=== PATIENT | female | born 1945 | race Caucasian/White ===

== ENCOUNTER 2020-08-30 01:01 | Inpatient (IN) | payer MEDICARE, SELFPAY ==
[2020-08-30] VITALS (9 sets, daily range): BP systolic 116–151; BP diastolic 52–93; PULSE 70–89; RESP 15–20; TEMP 36.3–36.9; O2SAT 95–100; BMI 30.9
--- NOTE | 2020-08-30 02:44 | ED.GIBLEED ---
HPI - GI Bleed General Chief complaint: Nausea/Vomiting/Diarrhea Stated complaint: Diarrhea Time Seen by Provider: 08/30/20 02:07 Source: patient Mode of arrival: ambulatory Limitations: no limitations History of Present Illness HPI Narrative: This is a 75-year-old female who presents with onset bloody stools, times for, that started approximately 7:00 p.m. this evening is not associated with any abdominal discomfort, nausea, or vomiting. In addition, patient states that she has this sensation of when she rolls onto the side and attempts to pass gas that she has passed blood at the same time which she has noted to be present on her Kotex pad. Patient states that she has had Patient states that she has had this once before approximately 3 months ago but was not evaluated for it at that time. She denies any use of blood thinners, or consumption of contaminated food, fevers, chills, urinary pain/ burning /frequency. Related Data Home Medications Medication Instructions Recorded Confirmed amlodipine 1 tab PO DAILY 08/30/20 08/30/20 atorvastatin 1 tab PO DAILY 08/30/20 08/30/20 hydrochlorothiazide 1 tab PO DAILY 08/30/20 08/30/20 latanoprost 1 drp OPHTHALMIC (EYE) DAILY 08/30/20 08/30/20 losartan 1 tab PO DAILY 08/30/20 08/30/20 metoprolol tartrate 1 tab PO BID 08/30/20 08/30/20 Allergies Allergy/AdvReac Type Severity Reaction Status Date / Time No Known Allergies Allergy Verified 08/30/20 02:44 Review of Systems Review of Systems: Pertinent positives and negatives as stated in HPI 10 point review systems is otherwise negative. [facility] Past Medical History Source: nursing notes reviewed Medical History Aplasia of uterus Glaucoma High cholesterol HTN (hypertension) S/p breast implant removal Tonsillectomy planned Vaginal fistula Social History Social History Alcohol intake: never Smoking Status: Never smoker Use of substances other than those prescribed or required for medical reasons: No Advance Directives: No Advance Directives Information Provided: Yes Physical Exam Vital Signs: Vital Signs: Last Vital Signs Temp 97.3 F 08/30/20 01:04 Pulse 89 08/30/20 06:00 Resp 15 08/30/20 06:00 BP 116/55 L 08/30/20 06:00 Pulse Ox 98 08/30/20 06:00 Body Mass Index 30.9 VITAL SIGNS: Reviewed. GENERAL: Well developed, well nourished, in no acute distress. HEAD: Normocephalic/atraumatic, EYES: PERRLA, EOMI intact without pain, no nystagmus/pallor/icterus noted EARS: Ext canals without abnormality, TMs non-bulging and non-erythematous NOSE: Nares patent bilateral OROPHARYNX: no oral lesions noted, posterior pharynx clear and non-erythematous without noted tonsillar enlargement/erythema/exudates NECK: Supple, no adenopathy LUNGS: Normal breath sounds. No adventitious sounds or accessory muscle use. SpO2<100> CARDIOVASCULAR: Regular rate and rhythm without noted murmurs, no JVD or lower extremity edema. ABDOMEN: Soft, non-tender, non-distended with bowel sounds. No rigidity. No guarding. No palpable masses or hernias noted KYLEE: Noninflamed hemorrhoid at the 6 o'clock position, significant irritation noted to the anus at the 12 o'clock position otherwise no tags or lesions noted, liquid stool noted in the rectal vault with good rectal tone and noted dark blood on gloved finger MUSCULOSKELETAL: No tenderness, deformities, or effusions noted on gross inspection. EXTREMITIES: No cyanosis, clubbing or edema. SKIN: Inspection of the skin reveals no rashes, ulcerations, jaundice, pallor, or petechiae. NEUROLOGIC: Alert and oriented x 4. Strength and sensation to light touch were grossly intact x 4. Course Course Course Narrative: This is a 75-year-old female with history and clinical presentation consistent with lower GI bleed diverticular versus ischemic versus hemorrhoidal in etiology. However, on noting the significant leukocytosis patient was further treated for sepsis with IV fluids (given at ideal body weight which was calculated to be 54.9 kilos ), blood cultures, lactic acid, and antibiotics. On review of all investigations there is a noted elevated bilirubin -1.2 which pushes patient into the category of organ dysfunction and lactic acid is noted to be within normal limits. COVID-19 testing is negative, and review of CT scan abdomen pelvis for GI bleed is significant for a noted hemangioma in the left liver lobe and wall thickening of the descending colon into the sigmoid without evidence of blush to suggest acute bleed. I discussed this case with inpatient hospitalist team and they are agreeable for admission. Reevaluation(s) Reevaluation #1: I discussed this case with Dr. Silva and he agrees with current plan and has no further recommendations at this time. Time: 05:45 MDM - GI Bleed Lab Data Result diagrams: 08/30/20 03:08 08/30/20 03:08 Labs: Lab Results 08/30/20 08/30/20 08/30/20 Range/Units 03:08 03:08 03:08 WBC 18.8 H (4.8-10.8) X10*3/uL RBC 4.89 (4.20-5.50) X10*6/uL Hgb 13.8 (12.0-16.0) g/dl Hct 42.3 (37-47) % MCV 86.5 (80-98) fL MCH 28.2 (27.0-33.0) pg MCHC 32.6 (31.0-35.0) g/dl RDW 12.5 (11.0-16.0) % Plt Count 282 (160-400) X10*3/uL MPV 10.5 (9.4-12.3) fL Immature Gran % (Auto) 0.4 (0.0-0.4) % Neut % (Auto) 85.3 H (45-73) % Lymph % (Auto) 6.8 L (20-40) % [place] % (Auto) 6.9 (2-11) % Eos % (Auto) 0.4 (0-4) % Baso % (Auto) 0.2 (0-2) % Lymph # (Auto) 1.3 (1.2-4.9) X10*3/uL [place] # (Auto) 1.3 H (0.1-1.2) X10*3/uL Eos # (Auto) 0.1 (0.0-0.4) X10*3/uL Baso # (Auto) 0.0 (0.0-0.2) X10*3/uL Abs Immat Gran (auto) 0.08 H (0.00-0.03) X10*3/uL Absolute Neuts (auto) 16.0 H (2.0-8.3) X10*3/uL Absolute Nucleated RBC 0.000 (0.0-0.012) X10*3/uL Nucleated RBC % (auto) 0.0 (0.0-0.2) /100WBC PT 12.1 (10.8-13.0) SEC INR 1.0 (0.9-1.1) Sodium 135 (135-145) mmol/L Potassium 3.3 (3.3-5.1) mmol/l Chloride 96 (96-108) mmol/L Carbon Dioxide 25 (22-29) mmol/L Anion Gap 17 (12-20) BUN 21 H (9-16) mg/dL Creatinine 1.05 (0.5-1.4) mg/dL Estim Creat Clear Calc 49.3 Estimated GFR 51 Random Glucose 155 H (60-115) mg/dL Lactic Acid (0.5-2.0) mmol/L Calcium 9.0 (8.4-10.2) mg/dL Total Bilirubin 1.2 H (0.0-1.0) mg/dL AST 11 (5-31) U/L ALT 15 (0-31) U/L Alkaline Phosphatase 78 (39-117) U/L Total Protein 7.2 (6.5-8.0) g/dL Albumin 4.2 (3.5-5.0) g/dL Urine Color Urine Appearance Urine pH (5.0-8.0) Ur Specific [place] (1.005-1.025) Urine Protein (NEG-TRACE) MG/DL Urine Glucose (UA) (NEG) MG/DL Urine Ketones (NEG) MG/DL Urine Blood (NEG) Urine Nitrite (NEG) Ur Leukocyte Esterase (NEG) Urine RBC (0) /HPF Urine WBC (0-4) /HPF Ur Squamous Epith Cells /LPF Urine Bacteria /LPF Hyaline Casts /LPF Granular Casts /LPF Urine Mucus /LPF Urine Yeast /HPF Stool Occult Blood (NEG) Coronavirus (PCR) (Negative) Influenza Type A (PCR) (Negative) Influenza Type B (PCR) (Negative) RSV RNA Qual (PCR) (Negative) Blood Type Antibody Screen 08/30/20 08/30/20 08/30/20 Range/Units 03:08 03:08 03:12 WBC (4.8-10.8) X10*3/uL RBC (4.20-5.50) X10*6/uL Hgb (12.0-16.0) g/dl Hct (37-47) % MCV (80-98) fL MCH (27.0-33.0) pg MCHC (31.0-35.0) g/dl RDW (11.0-16.0) % Plt Count (160-400) X10*3/uL MPV (9.4-12.3) fL Immature Gran % (Auto) (0.0-0.4) % Neut % (Auto) (45-73) % Lymph % (Auto) (20-40) % [place] % (Auto) (2-11) % Eos % (Auto) (0-4) % Baso % (Auto) (0-2) % Lymph # (Auto) (1.2-4.9) X10*3/uL [place] # (Auto) (0.1-1.2) X10*3/uL Eos # (Auto) (0.0-0.4) X10*3/uL Baso # (Auto) (0.0-0.2) X10*3/uL Abs Immat Gran (auto) (0.00-0.03) X10*3/uL Absolute Neuts (auto) (2.0-8.3) X10*3/uL Absolute Nucleated RBC (0.0-0.012) X10*3/uL Nucleated RBC % (auto) (0.0-0.2) /100WBC PT (10.8-13.0) SEC INR (0.9-1.1) Sodium (135-145) mmol/L Potassium (3.3-5.1) mmol/l Chloride (96-108) mmol/L Carbon Dioxide (22-29) mmol/L Anion Gap (12-20) BUN (9-16) mg/dL Creatinine (0.5-1.4) mg/dL Estim Creat Clear Calc Estimated GFR Random Glucose (60-115) mg/dL Lactic Acid (0.5-2.0) mmol/L Calcium (8.4-10.2) mg/dL Total Bilirubin (0.0-1.0) mg/dL AST (5-31) U/L ALT (0-31) U/L Alkaline Phosphatase (39-117) U/L Total Protein (6.5-8.0) g/dL Albumin (3.5-5.0) g/dL Urine Color YELLOW Urine Appearance CLEAR Urine pH 6.0 (5.0-8.0) Ur Specific [place] 1.020 (1.005-1.025) Urine Protein NEG (NEG-TRACE) MG/DL Urine Glucose (UA) NEG (NEG) MG/DL Urine Ketones NEG (NEG) MG/DL Urine Blood TRACE (NEG) Urine Nitrite NEG (NEG) Ur Leukocyte Esterase NEG (NEG) Urine RBC 0 (0) /HPF Urine WBC 0-2 (0-4) /HPF Ur Squamous Epith Cells 3+ /LPF Urine Bacteria 1+ /LPF Hyaline Casts 0-2 /LPF Granular Casts 0-2 /LPF Urine Mucus 1+ /LPF Urine Yeast 2+ /HPF Stool Occult Blood POS (NEG) Coronavirus (PCR) (Negative) Influenza Type A (PCR) (Negative) Influenza Type B (PCR) (Negative) RSV RNA Qual (PCR) (Negative) Blood Type A Positive Antibody Screen NEGATIVE 08/30/20 08/30/20 Range/Units 03:48 03:55 WBC (4.8-10.8) X10*3/uL RBC (4.20-5.50) X10*6/uL Hgb (12.0-16.0) g/dl Hct (37-47) % MCV (80-98) fL MCH (27.0-33.0) pg MCHC (31.0-35.0) g/dl RDW (11.0-16.0) % Plt Count (160-400) X10*3/uL MPV (9.4-12.3) fL Immature Gran % (Auto) (0.0-0.4) % Neut % (Auto) (45-73) % Lymph % (Auto) (20-40) % [place] % (Auto) (2-11) % Eos % (Auto) (0-4) % Baso % (Auto) (0-2) % Lymph # (Auto) (1.2-4.9) X10*3/uL [place] # (Auto) (0.1-1.2) X10*3/uL Eos # (Auto) (0.0-0.4) X10*3/uL Baso # (Auto) (0.0-0.2) X10*3/uL Abs Immat Gran (auto) (0.00-0.03) X10*3/uL Absolute Neuts (auto) (2.0-8.3) X10*3/uL Absolute Nucleated RBC (0.0-0.012) X10*3/uL Nucleated RBC % (auto) (0.0-0.2) /100WBC PT (10.8-13.0) SEC INR (0.9-1.1) Sodium (135-145) mmol/L Potassium (3.3-5.1) mmol/l Chloride (96-108) mmol/L Carbon Dioxide (22-29) mmol/L Anion Gap (12-20) BUN (9-16) mg/dL Creatinine (0.5-1.4) mg/dL Estim Creat Clear Calc Estimated GFR Random Glucose (60-115) mg/dL Lactic Acid 1.7 (0.5-2.0) mmol/L Calcium (8.4-10.2) mg/dL Total Bilirubin (0.0-1.0) mg/dL AST (5-31) U/L ALT (0-31) U/L Alkaline Phosphatase (39-117) U/L Total Protein (6.5-8.0) g/dL Albumin (3.5-5.0) g/dL Urine Color Urine Appearance Urine pH (5.0-8.0) Ur Specific [place] (1.005-1.025) Urine Protein (NEG-TRACE) MG/DL Urine Glucose (UA) (NEG) MG/DL Urine Ketones (NEG) MG/DL Urine Blood (NEG) Urine Nitrite (NEG) Ur Leukocyte Esterase (NEG) Urine RBC (0) /HPF Urine WBC (0-4) /HPF Ur Squamous Epith Cells /LPF Urine Bacteria /LPF Hyaline Casts /LPF Granular Casts /LPF Urine Mucus /LPF Urine Yeast /HPF Stool Occult Blood (NEG) Coronavirus (PCR) NEGATIVE (Negative) Influenza Type A (PCR) NEGATIVE (Negative) Influenza Type B (PCR) NEGATIVE (Negative) RSV RNA Qual (PCR) NEGATIVE (Negative) Blood Type Antibody Screen Discharge Plan Discharge Clinical Impression: Colitis Sepsis Qualifiers: Sepsis type: sepsis due to unspecified organism Sepsis acute organ dysfunction status: unspecified Qualified Code(s): A41.9 - Sepsis, unspecified organism Patient Disposition: Admitted As Inpatient
[2020-08-30 03:18] LABS: Basophils Percent Auto 0.2 % (0-2); Eosinophils Absolute Auto 0.1 X10*3/uL (0.0-0.4); Eosinophils Percent Auto 0.4 % (0-4); Hematocrit 42.3 % (37-47); Hemoglobin 13.8 g/dl (12.0-16.0); Imm Gran Abs Auto 0.08 X10*3/uL (0.00-0.03); Imm Gran Pct Auto 0.4 % (0.0-0.4); Lymphocytes Absolute Auto 1.3 X10*3/uL (1.2-4.9); Lymphocytes Percent Auto 6.8 % (20-40); MANUAL DIFF FLAG NO; Mean Corpuscular HGB Conc 32.6 g/dl (31.0-35.0); Mean Corpuscular Hemoglobin 28.2 pg (27.0-33.0); Mean Corpuscular Volume 86.5 fL (80-98); Mean Platelet Volume 10.5 fL (9.4-12.3); Monocytes Absolute Auto 1.3 X10*3/uL (0.1-1.2); Monocytes Percent Auto 6.9 % (2-11); Neutrophils Percent Auto 85.3 % (45-73); Platelet Count 282 X10*3/uL (160-400); Red Blood Count 4.89 X10*6/uL (4.20-5.50); Red Cell Distribution Width 12.5 % (11.0-16.0); White Blood Count 18.8 X10*3/uL (4.8-10.8)
[2020-08-30 03:19] LABS: Glucose Urine UA NEG (NEG); Leukocyte Esterase Urine NEG (NEG); Nitrite Urine NEG (NEG); Urine Blood TRACE (NEG); Urine Ketones NEG (NEG); Urine Protein NEG (NEG-TRACE)
[2020-08-30 03:21] LABS: OBS Int Ctl Valid YES; OBS1 POS (NEG)
[2020-08-30 03:21] LABS: Appearance Urine CLEAR; Color Urine YELLOW
[2020-08-30 03:23] LABS: Prothrombin Time 12.1 SEC (10.8-13.0)
--- NOTE | 2020-08-30 03:28 | CT_ITS ---
EXAMINATION: CT ABDOMEN AND PELVIS WITHOUT AND WITH CONTRAST CLINICAL INFORMATION: GI bleed COMPARISON: None TECHNIQUE: Multidetector volumetric imaging was performed of the abdomen and pelvis before and after the IV administration of 80 mL of Omnipaque 350 intravenous contrast. Two-minute delayed acquisition performed. Sagittal and coronal reformatted images were obtained on the technologist's workstation. This CT examination was performed using dose optimization techniques as appropriate, variously including the following: *Automated exposure control *Adjustment of mA and/or kV according to patient size (this includes techniques or standardized protocols for targeted exams where dose is matched to indication/reason for exam; i.e. extremities or head) *Use of iterative reconstruction technique DLP: 1769 mGy-cm FINDINGS: LUNG BASES: The visualized lung bases are unremarkable. LIVER, GALLBLADDER, AND BILIARY TREE: The liver is normal in size, shape, and attenuation. No biliary ductal dilatation. There is a 3.5 cm mass in the left lobe of the liver. This is initially hypoattenuating. There is heterogeneous enhancement on arterial phase with uniform enhancement on the delayed phase, consistent with a hemangioma.. The gallbladder is unremarkable with no evidence of radiopaque gallstones, gallbladder wall thickening, or obvious pericholecystic inflammatory changes. PANCREAS: Unremarkable SPLEEN: Unremarkable ADRENAL GLANDS: Unremarkable KIDNEYS AND URETERS: The kidneys are normal in size, shape, and attenuation. No hydronephrosis, hydroureter, or calculi seen. No perinephric stranding. Right midpole renal cyst. BLADDER: Unremarkable GASTROINTESTINAL TRACT: The stomach is unremarkable. Normal caliber small bowel. No obstruction. There is prominent wall thickening involving the descending and sigmoid colon. Adjacent mild inflammation. There is no definite intraluminal blush of contrast, although evaluation is limited in the descending colon due to the collapsed nature of the lumen. No pooling of contrast on the delayed phase. Normal appendix. ABDOMINAL WALL: No significant hernia is appreciated. LYMPH NODES: Normal VASCULAR: Normal caliber aorta with mild atherosclerotic calcification. PELVIC VISCERA: The uterus and adnexa are unremarkable. OSSEOUS STRUCTURES: No acute or suspicious osseous abnormality. CT/CT gi bleed abd pel wo/w con IMPRESSION: 1. Prominent wall thickening of the descending and sigmoid colon, consistent with colitis. Favor infectious or inflammatory etiology. 2. No evidence for active gastrointestinal bleed. That said, evaluation of the descending colon is limited due to the collapsed lumen.
[2020-08-30 03:34] LABS: WBC Urine 0-2 /HPF (0-4)
[2020-08-30 03:35] LABS: Bacteria Urine 1+ /LPF; Granular Casts Urine 0-2 /LPF; Hyaline Casts Urine 0-2 /LPF; Mucus Urine 1+ /LPF; RBC Urine 0 /HPF (0); Squamous Epithelial Cell Urine 3+ /LPF
[2020-08-30 03:41] LABS: Alanine Aminotransferase 15 U/L (0-31); Albumin Level 4.2 g/dL (3.5-5.0); Alkaline Phosphatase 78 U/L (39-117); Anion Gap 17 (12-20); Aspartate Amino Transferase 11 U/L (5-31); Bilirubin Total 1.2 mg/dL (0.0-1.0); Blood Urea Nitrogen 21 mg/dL (9-16); Carbon Dioxide 25 mmol/L (22-29); Chloride 96 mmol/L (96-108); Creatinine Clr Calc Pharmacy 49.3; Estimated Glomerular Filt Rate 51; Glucose Random 155 mg/dL (60-115); Potassium 3.3 mmol/l (3.3-5.1); Sodium 135 mmol/L (135-145); Total Protein 7.2 g/dL (6.5-8.0)
[2020-08-30] MEDS: SODIUM CHLORIDE 999 ML IV (04:14)
[2020-08-30] MEDS: iohexoL 350 MG/ML 100 ML INFUS..BTL 80 ML IV (04:19)
[2020-08-30 04:22] LABS: Lactic Acid 1.7 mmol/L (0.5-2.0)
[2020-08-30 04:41] LABS: Influenza A PCR NEGATIVE (Negative); Influenza B PCR NEGATIVE (Negative); Resp Syncy Virus RNA Qual PCR NEGATIVE (Negative); SARS COV2 PCR INHOUSE NEGATIVE (Negative)
[2020-08-30] MEDS: Piperacillin Sodium/Tazobactam 3.375 GM in 0.9 % Sodium Chloride 50 ML IV (05:25)
[2020-08-30] MEDS: LORazepam 2 MG/ML VIAL 0.5 MG IVPUSH (06:09)
--- NOTE | 2020-08-30 10:49 | P.HPHOSP_ITS ---
History of Present Illness Date of Service: 08/30/20 Chief Complaint: bleeding per rectum a 75 years ovaluld lady with PMH of hypertension, obesity and hyperlipidemia who presents to the hospital complaining of bright red blood per rectum for 1 day prior to presentation. The patient reported that she woke up at the night to go to the bathroom were she noticed after passing bowel movement significant amount of blood in the toilet. She continue to have blood after each bowel movement which happened already 3 times since last night. No clots reported. She denies any abdominal pain, fever, chills, dizziness or lightheadedness, shortness of breath or chest pain. She reports she had last colonoscopy 10 years ago which was within normal. She confirm having a history of internal hemorrhoids but she did not have problem with bleeding before. CT scan the emergency was concerning for possible colitis in the descending colon. Admitted for further evaluation and treatment in the hospital. Review of Systems Review of Systems: No fever, chills or weakness No chest pain, palpitation No shortness of breath or coughing No abdominal pain, nausea or vomiting The but reported bleeding per rectum No urinary symptoms No any rash or wounds PMFSH Medical History Aplasia of uterus Glaucoma High cholesterol HTN (hypertension) S/p breast implant removal Tonsillectomy planned Vaginal fistula Social History Alcohol intake: never Smoking Status: Never smoker Use of substances other than those prescribed or required for medical reasons: No Advance Directives: No Advance Directives Information Provided: Yes Meds Allergies Allergy/AdvReac Type Severity Reaction Status Date / Time No Known Allergies Allergy Verified 08/30/20 02:44 Home Medications Medication Instructions Recorded Confirmed Type amlodipine 1 tab PO DAILY 08/30/20 08/30/20 History atorvastatin 1 tab PO DAILY 08/30/20 08/30/20 History hydrochlorothiazide 1 tab PO DAILY 08/30/20 08/30/20 History latanoprost 1 drp OPHTHALMIC (EYE) DAILY 08/30/20 08/30/20 History losartan 1 tab PO DAILY 08/30/20 08/30/20 History metoprolol tartrate 1 tab PO BID 08/30/20 08/30/20 History Physical Exam Vital Signs and Narrative: Vital Signs: Last Vital Signs Temp 97.3 F 08/30/20 01:04 Pulse 89 08/30/20 06:00 Resp 15 08/30/20 06:00 BP 116/55 L 08/30/20 06:00 Pulse Ox 98 08/30/20 06:00 Body Mass Index 30.9 Constitutional : Alert, oriented, not in distress Neck : Normal inspection, Supple Cardiovascular : RRR, S1 S2, no lower extremity edema Respiratory : Good bilateral air entry, no crackles, wheezes or rhonchi Gastrointestinal: soft, lax, Normal bowel sounds, no tenderness noted on exam Skin : Warm/Dry, No rash Neurological : Alert & oriented x3, No focal deficit Results Labs CBC and Chem 7: 08/30/20 03:08 08/30/20 03:08 Labs: Laboratory Results - last 24 hr 08/30/20 08/30/20 08/30/20 03:08 03:08 03:08 MCV 86.5 MCH 28.2 MCHC 32.6 RDW 12.5 Plt Count 282 MPV 10.5 Immature Gran % (Auto) 0.4 Neut % (Auto) 85.3 H Lymph % (Auto) 6.8 L [place] % (Auto) 6.9 Eos % (Auto) 0.4 Baso % (Auto) 0.2 Lymph # (Auto) 1.3 [place] # (Auto) 1.3 H Eos # (Auto) 0.1 Baso # (Auto) 0.0 Abs Immat Gran (auto) 0.08 H Absolute Neuts (auto) 16.0 H Absolute Nucleated RBC 0.000 Nucleated RBC % (auto) 0.0 PT 12.1 INR 1.0 Anion Gap 17 Estim Creat Clear Calc 49.3 Estimated GFR 51 Random Glucose 155 H Lactic Acid Calcium 9.0 Total Bilirubin 1.2 H AST 11 ALT 15 Alkaline Phosphatase 78 Total Protein 7.2 Albumin 4.2 Urine Color Urine Appearance Urine pH Ur Specific [place] Urine Protein Urine Glucose (UA) Urine Ketones Urine Blood Urine Nitrite Ur Leukocyte Esterase Urine RBC Urine WBC Ur Squamous Epith Cells Urine Bacteria Hyaline Casts Granular Casts Urine Mucus Urine Yeast Stool Occult Blood Coronavirus (PCR) Influenza Type A (PCR) Influenza Type B (PCR) RSV RNA Qual (PCR) Blood Type Antibody Screen 08/30/20 08/30/20 08/30/20 03:08 03:08 03:12 MCV MCH MCHC RDW Plt Count MPV Immature Gran % (Auto) Neut % (Auto) Lymph % (Auto) [place] % (Auto) Eos % (Auto) Baso % (Auto) Lymph # (Auto) [place] # (Auto) Eos # (Auto) Baso # (Auto) Abs Immat Gran (auto) Absolute Neuts (auto) Absolute Nucleated RBC Nucleated RBC % (auto) PT INR Anion Gap Estim Creat Clear Calc Estimated GFR Random Glucose Lactic Acid Calcium Total Bilirubin AST ALT Alkaline Phosphatase Total Protein Albumin Urine Color YELLOW Urine Appearance CLEAR Urine pH 6.0 Ur Specific [place] 1.020 Urine Protein NEG Urine Glucose (UA) NEG Urine Ketones NEG Urine Blood TRACE Urine Nitrite NEG Ur Leukocyte Esterase NEG Urine RBC 0 Urine WBC 0-2 Ur Squamous Epith Cells 3+ Urine Bacteria 1+ Hyaline Casts 0-2 Granular Casts 0-2 Urine Mucus 1+ Urine Yeast 2+ Stool Occult Blood POS Coronavirus (PCR) Influenza Type A (PCR) Influenza Type B (PCR) RSV RNA Qual (PCR) Blood Type A Positive Antibody Screen NEGATIVE 08/30/20 08/30/20 03:48 03:55 MCV MCH MCHC RDW Plt Count MPV Immature Gran % (Auto) Neut % (Auto) Lymph % (Auto) [place] % (Auto) Eos % (Auto) Baso % (Auto) Lymph # (Auto) [place] # (Auto) Eos # (Auto) Baso # (Auto) Abs Immat Gran (auto) Absolute Neuts (auto) Absolute Nucleated RBC Nucleated RBC % (auto) PT INR Anion Gap Estim Creat Clear Calc Estimated GFR Random Glucose Lactic Acid 1.7 Calcium Total Bilirubin AST ALT Alkaline Phosphatase Total Protein Albumin Urine Color Urine Appearance Urine pH Ur Specific [place] Urine Protein Urine Glucose (UA) Urine Ketones Urine Blood Urine Nitrite Ur Leukocyte Esterase Urine RBC Urine WBC Ur Squamous Epith Cells Urine Bacteria Hyaline Casts Granular Casts Urine Mucus Urine Yeast Stool Occult Blood Coronavirus (PCR) NEGATIVE Influenza Type A (PCR) NEGATIVE Influenza Type B (PCR) NEGATIVE RSV RNA Qual (PCR) NEGATIVE Blood Type Antibody Screen Imaging Radiologist's Impressions: Impressions Abdomen/Pelvis CT 08/30/20 03:28 IMPRESSION: 1. Prominent wall thickening of the descending and sigmoid colon, consistent with colitis. Favor infectious or inflammatory etiology. 2. No evidence for active gastrointestinal bleed. That said, evaluation of the descending colon is limited due to the collapsed lumen. Assessment and Plan (1) Lower GI bleed: Status: Acute (2) Colitis: Status: Acute a 75 years oval[place] lady with PMH of hypertension, obesity and hyperlipidemia who presents to the hospital complaining of bright red blood per rectum for 1 day prior to presentation. Lower GI bleed Be secondary to internal hemorrhoids, ischemic colitis, diverticular bleed,infectious colitis hemoglobin has been stable CT scan consistent with colitis with no evidence for acute bleed Monitor H and H For GI to evaluate Colitis Could be infection was, inflammatory or ischemic Blood cultures pending Start ceftriaxone and Flagyl for the time being gentle hydration Clear liquids Hypertension Blood pressure running the around normal With active bleeding will hold HCT, amlodipine and losartan Start metoprolol and a lower dose To add blood pressure medications as needed DVT PPX SCDs
[2020-08-30] MEDS: metroNIDAZOLE/NS 500 MG/100 ML PIGGYBACK 100 MG IV ×2 (12:00→20:39)
--- NOTE | 2020-08-30 13:39 | CONS_ITS ---
DATE OF SERVICE: 08/30/2020 REFERRING PHYSICIAN: Yessenia Ayers REASON FOR CONSULTATION: Colitis and rectal bleeding. HISTORY OF PRESENT ILLNESS: The patient is a pleasant 75-year-old woman, who presented to the emergency room earlier today with complaints of rectal bleeding. She states she was well until the day before admission when she went to bed and shortly afterwards woke up with the urge to move her bowels. Initially, she had diarrhea and then she noticed blood on the toilet paper and in the bowl. This happened several times at home and she presented to the emergency room. She has had no further bleeding since admission. She was evaluated in the emergency department and laboratory studies showed a normal hematocrit. She did have a white blood cell count elevation to 18.8. She subsequently was evaluated with CT scanning, which is reviewed. This is interpreted as showing wall thickening of the descending and sigmoid colon consistent with colitis. She is being admitted to the hospital. The patient denies any prior history of colitis. She believes she had a colonoscopy about 13 years ago in [place], which was remarkable for hemorrhoids. She has no recent travel history or unusual ingestions or ill contacts. There is no family history of inflammatory bowel disease. PAST MEDICAL HISTORY: 1. Hypertension. 2. Elevated cholesterol. 3. Glaucoma. 4. Vaginal fistula , requiring surgery. 5. Breast implant placement and removal. CURRENT MEDICATIONS: Her current medication list is reviewed in the chart. ALLERGIES: THERE ARE NONE REPORTED. FAMILY HISTORY: As above. SOCIAL HISTORY: There is no current tobacco, alcohol, or substance abuse. REVIEW OF SYSTEMS: SKIN: No pruritus. HEENT: Negative. CARDIOPULMONARY: No shortness of breath or chest pain. GASTROINTESTINAL: As above. GENITOURINARY: Negative. NEUROPSYCHIATRIC: Negative. PHYSICAL EXAMINATION: GENERAL: Shows a pleasant female, lying comfortably in bed. VITAL SIGNS: Stable. SKIN: Anicteric. HEENT: Shows no scleral icterus. NECK: Without lymphadenopathy or thyromegaly. LUNGS: Clear. HEART: Regular rate and rhythm. S1, S2. No murmur. ABDOMEN: Soft without focal masses, tenderness, guarding, or rebound. Bowel sounds are present. No organomegaly is noted. EXTREMITIES: Without edema. LABORATORY DATA: Laboratory data and CT scanning are reviewed. IMPRESSION: Colitis. This likely represents an infectious colitis with ischemic being less likely. I doubt this represents a primary presentation of inflammatory bowel disease. She has been started on antibiotics for the time being, and I agree with continuing these. I would recommend obtaining stool specimens to rule out any treatable infectious etiology. If her symptoms persist, limited sigmoidoscopy could be performed for further evaluation. I did discuss with her the need to have a full colonoscopy at some point once she has recovered from this acute episode. Thanks for asking me to see her. I will follow her in the hospital with you. MD KIM Panda/[place] / [phone]
[2020-08-30] MEDS: cefTRIAXone sodium 1 GM in 0.9 % Sodium Chloride 50 ML IV (14:04)
[2020-08-30] MEDS: Latanoprost 0.005 % Ophth Sol 2.5 ML DROPS 1 DROP EYE-BOTH (20:39)
[2020-08-30] MEDS: 0.9 % Sodium Chloride Flush 3 ML SYRINGE IVFLUSH (20:39)
[2020-08-30] MEDS: 0.9 % Sodium Chloride 1,000 ML 75 ML IVCONT (20:39)
--- NOTE | 2020-08-30 21:12 | PM.EVENT ---
Event Note Date of Service: 08/30/20 Event Note: Metoprolol dose updated to 100 mg BID which is the dose patient is taking at home per patient's list.
[2020-08-30 22:04] LABS: Anion Gap 12 (12-20); Blood Urea Nitrogen 10 mg/dL (9-16); Calcium 8.3 mg/dL (8.4-10.2); Carbon Dioxide 28 mmol/L (22-29); Chloride 104 mmol/L (96-108); Creatinine Clr Calc Pharmacy 63.9; Estimated Glomerular Filt Rate > 60; Glucose Random 94 mg/dL (60-115); Magnesium 1.6 mg/dL (1.6-2.6); Potassium 3.2 mmol/l (3.3-5.1); Sodium 141 mmol/L (135-145)
[2020-08-30] MEDS: Metoprolol Tartrate 100 MG TABLET PO (22:18)
[2020-08-31] VITALS (7 sets, daily range): BP systolic 112–146; BP diastolic 57–70; PULSE 61–90; RESP 16–20; TEMP 36.4–36.9; O2SAT 94–95; BMI 30.9
[2020-08-31] MEDS: metroNIDAZOLE/NS 500 MG/100 ML PIGGYBACK 100 MG IV ×3 (02:55→18:17)
[2020-08-31 06:29] LABS: Hematocrit 39.4 % (37-47); Hemoglobin 12.7 g/dl (12.0-16.0); Mean Corpuscular HGB Conc 32.2 g/dl (31.0-35.0); Mean Corpuscular Hemoglobin 28.5 pg (27.0-33.0); Mean Corpuscular Volume 88.3 fL (80-98); Mean Platelet Volume 11.2 fL (9.4-12.3); Platelet Count 230 X10*3/uL (160-400); Red Blood Count 4.46 X10*6/uL (4.20-5.50); Red Cell Distribution Width 12.9 % (11.0-16.0); White Blood Count 7.5 X10*3/uL (4.8-10.8)
[2020-08-31 07:03] LABS: Anion Gap 13 (12-20); Blood Urea Nitrogen 10 mg/dL (9-16); Calcium 8.4 mg/dL (8.4-10.2); Carbon Dioxide 28 mmol/L (22-29); Chloride 106 mmol/L (96-108); Creatinine Clr Calc Pharmacy 62.4; Estimated Glomerular Filt Rate > 60; Glucose Random 103 mg/dL (60-115); Potassium 3.5 mmol/l (3.3-5.1); Sodium 143 mmol/L (135-145)
[2020-08-31] MEDS: 0.9 % Sodium Chloride Flush 3 ML SYRINGE IVFLUSH (07:33)
--- NOTE | 2020-08-31 08:45 | MHC.CM.PN ---
CM met with Patient. Patient lives alone in a house and uses a cane for long distance mobility only. Patient's goal is to return home and CM has initiated and will follow for dc planning.IMM addressed with Patient and the original has been given to her and a copy has been placed on the chart.Patient's PCP is Dr. Merlin Dewitt.Patient's Daughter/Lacy is her HCP.
[2020-08-31] MEDS: 0.9 % Sodium Chloride 1,000 ML 75 ML IVCONT ×2 (09:31→23:36)
[2020-08-31] MEDS: cefTRIAXone sodium 1 GM in 0.9 % Sodium Chloride 50 ML IV (09:32)
[2020-08-31] MEDS: Atorvastatin Calcium 40 MG TABLET PO (10:13)
[2020-08-31] MEDS: Metoprolol Tartrate 100 MG TABLET PO ×2 (10:13→20:24)
--- NOTE | 2020-08-31 15:21 | HO.PM.IMPN ---
Subjective Subjective Date of Service: 08/31/20 Interval History: patient seen and examined at bedside patient was reporting diarrhea and abdominal pain Review of Systems No fever, chills or weakness No chest pain, palpitation No shortness of breath or coughing No abdominal pain, nausea or vomiting The but reported bleeding per rectum No urinary symptoms No any rash or wounds Constitutional Constitutional: Reports weakness Cardiovascular Cardiovascular: Denies dyspnea Respiratory Respiratory: Denies dyspnea Gastrointestinal Gastrointestinal: Reports abdominal pain, Reports diarrhea and Denies vomiting Neurologic Neurologic: Reports weakness Physical Exam Vital Signs: Vital Signs: Last Vital Signs Temp 97.9 F 08/31/20 12:00 Pulse 61 08/31/20 12:00 Resp 18 08/31/20 12:00 BP 121/60 08/31/20 12:00 Pulse Ox 94 08/31/20 12:00 Body Mass Index 30.9 Objective Data Current Medications Generic Name Dose Route Start Last Admin Trade Name Freq PRN Reason Stop Dose Admin Acetaminophen 650 mg 08/30/20 17:34 Acetaminophen 325 Mg Tablet PO Q6H PRN Pain, Mild (Pain Scale 1-3) Atorvastatin Calcium 40 mg 08/31/20 09:00 08/31/20 10:13 Atorvastatin Calcium 40 Mg Tablet PO 40 mg DAILY JANETH Administration Ceftriaxone Sodium 1 gm/ 50 mls @ 100 mls/hr 08/30/20 11:00 08/31/20 10:14 Sodium Chloride IV Infused DAILY JANETH Infusion Metronidazole 500 mg in 100 mls @ 100 mls/hr 08/30/20 10:45 08/31/20 12:12 Flagyl IV Infused Q8H JANETH Infusion Sodium Chloride 1,000 mls @ 75 mls/hr 08/30/20 17:34 08/31/20 09:31 Ns IVCONT 75 mls/hr .[id number] JANETH Administration Latanoprost 1 drop 08/31/20 09:00 08/30/20 20:39 Latanoprost 0.005 % Ophth Nahomy 2.5 Ml Drops EYE-BOTH 1 drop DAILY JANETH Administration Metoprolol Tartrate 100 mg 08/31/20 09:00 08/31/20 10:13 Metoprolol Tartrate 100 Mg Tablet PO 100 mg BID JANETH Administration Protocol Ondansetron HCl 4 mg 08/30/20 17:34 Ondansetron Hcl 4 Mg/2 Ml Vial IVPUSH Q8H PRN Nausea and Vomiting Sodium Chloride 3 ml 08/30/20 17:34 08/31/20 07:33 0.9 % Sodium Chloride Flush 3 Ml Syringe IVFLUSH 3 ml QSHIFT JANETH Administration Labs CBC & Chem 7: 08/31/20 05:37 08/31/20 05:37 Microbiology Microbiology Results: Microbiology 08/30/20 03:48 Blood - Venous Blood Culture - Preliminary 08/30/20 03:48 Blood - Venous Blood Culture - Preliminary No growth after 24 hours. Assessment and Plan (1) Lower GI bleed: Status: Acute (2) Colitis: Status: Acute Assessment and Plan: 75 years old lady with PMH of hypertension, obesity and hyperlipidemia who presents to the hospital complaining of bright red blood per rectum for 1 day prior to presentation. Lower GI bleed likely secondary to colitis infectious versus inflammatory continue IV antibiotic 1 set of blood culture preliminary growing Gram-positive cocci received 1 unit of vancomycin follow-up cultures seen by GI recommended medical management Hypertension blood pressure is stable hold antihypertensive given GI bleed and soft blood pressure DVT PPX SCDs
--- NOTE | 2020-08-31 16:03 | MHC.CM.PN ---
Per MD, Patient will be medically cleared for dc to home today, no services.IMM addressed this morning.
--- NOTE | 2020-08-31 16:39 | PM.GIPN ---
Subjective Subjective Date of Service: 08/31/20 Interval History: abdominal pain improved no further bleeding Physical Exam Vital Signs: Vital Signs: Last Vital Signs Temp 98.5 F 08/31/20 15:46 Pulse 90 08/31/20 15:46 Resp 20 08/31/20 15:46 BP 112/64 08/31/20 15:46 Pulse Ox 95 08/31/20 15:46 Body Mass Index 30.9 Const: General: cooperative, no acute distress and anxious GI: Palpation (GI): Soft to palpation and No hepatosplenomegaly present Extrem: General: Yes no clubbing, cyanosis or edema Objective Data Labs CBC & Chem 7: 08/31/20 05:37 08/31/20 05:37 Labs: Laboratory Results - last 24 hr 08/30/20 08/31/20 08/31/20 21:29 05:37 05:37 WBC 7.5 RBC 4.46 Hgb 12.7 Hct 39.4 MCV 88.3 MCH 28.5 MCHC 32.2 RDW 12.9 Plt Count 230 MPV 11.2 Absolute Nucleated RBC 0.000 Nucleated RBC % (auto) 0.0 Sodium 141 143 Potassium 3.2 L 3.5 Chloride 104 106 Carbon Dioxide 28 28 Anion Gap 12 13 BUN 10 D 10 Creatinine 0.81 0.83 Estim Creat Clear Calc 63.9 62.4 Estimated GFR > 60 > 60 Random Glucose 94 D 103 Calcium 8.3 L D 8.4 Magnesium 1.6 Microbiology Microbiology Results: Microbiology 08/30/20 03:48 Blood - Venous Blood Culture - Preliminary 08/30/20 03:48 Blood - Venous Blood Culture - Preliminary No growth after 24 hours. Progress Note: A&P Assessment and plan (1) Colitis: Status: Acute Assessment and Plan: clinically improved await final stool and micro results sigmoidoscopy unlikely to change therapy at this point Fall Risk Details Current Medications: Current Medications Generic Name Dose Route Start Last Admin Trade Name Freq PRN Reason Stop Dose Admin Acetaminophen 650 mg 08/30/20 17:34 Acetaminophen 325 Mg Tablet PO Q6H PRN Pain, Mild (Pain Scale 1-3) Atorvastatin Calcium 40 mg 08/31/20 09:00 08/31/20 10:13 Atorvastatin Calcium 40 Mg Tablet PO 40 mg DAILY JANETH Administration Ceftriaxone Sodium 1 gm/ 50 mls @ 100 mls/hr 08/30/20 11:00 08/31/20 10:14 Sodium Chloride IV Infused DAILY JANETH Infusion Metronidazole 500 mg in 100 mls @ 100 mls/hr 08/30/20 10:45 08/31/20 12:12 Flagyl IV Infused Q8H JANETH Infusion Sodium Chloride 1,000 mls @ 75 mls/hr 08/30/20 17:34 08/31/20 09:31 Ns IVCONT 75 mls/hr .[id number] JANETH Administration Latanoprost 1 drop 08/31/20 09:00 08/30/20 20:39 Latanoprost 0.005 % Ophth Nahomy 2.5 Ml Drops EYE-BOTH 1 drop DAILY JANETH Administration Metoprolol Tartrate 100 mg 08/31/20 09:00 08/31/20 10:13 Metoprolol Tartrate 100 Mg Tablet PO 100 mg BID JANETH Administration Protocol Ondansetron HCl 4 mg 08/30/20 17:34 Ondansetron Hcl 4 Mg/2 Ml Vial IVPUSH Q8H PRN Nausea and Vomiting Sodium Chloride 3 ml 08/30/20 17:34 08/31/20 16:24 0.9 % Sodium Chloride Flush 3 Ml Syringe IVFLUSH Not Given QSHIFT JANETH Time Spent With Patient Time: Total time spent is greater than 50% in coordination of care (as documented) at patient's floor/unit and/or counseling patient: Time with patient: less than 15 minutes
[2020-08-31] MEDS: Latanoprost 0.005 % Ophth Sol 2.5 ML DROPS 1 DROP EYE-BOTH (20:26)
[2020-08-31 20:54] LABS: Leukocytes Stool Qualitative NEGATIVE (NEGATIVE)
[2020-09-01] VITALS (9 sets, daily range): BP systolic 107–145; BP diastolic 51–68; PULSE 56–82; RESP 18–20; TEMP 35.7–37.1; O2SAT 94–98
[2020-09-01] MEDS: metroNIDAZOLE/NS 500 MG/100 ML PIGGYBACK 100 MG IV ×3 (02:38→18:11)
[2020-09-01 09:31] LABS: MANUAL DIFF FLAG NO
[2020-09-01] MEDS: Atorvastatin Calcium 40 MG TABLET PO (09:31)
[2020-09-01] MEDS: Metoprolol Tartrate 100 MG TABLET PO ×2 (09:31→20:54)
[2020-09-01] MEDS: cefTRIAXone sodium 1 GM in 0.9 % Sodium Chloride 50 ML IV (09:32)
[2020-09-01 09:36] LABS: Basophils Percent Auto 0.1 % (0-2); Eosinophils Absolute Auto 0.5 X10*3/uL (0.0-0.4); Eosinophils Percent Auto 6.8 % (0-4); Hematocrit 40.3 % (37-47); Hemoglobin 12.5 g/dl (12.0-16.0); Imm Gran Abs Auto 0.04 X10*3/uL (0.00-0.03); Imm Gran Pct Auto 0.6 % (0.0-0.4); Lymphocytes Absolute Auto 1.3 X10*3/uL (1.2-4.9); Lymphocytes Percent Auto 19.1 % (20-40); Mean Corpuscular Hemoglobin 28.1 pg (27.0-33.0); Mean Corpuscular Volume 90.6 fL (80-98); Mean Platelet Volume 10.8 fL (9.4-12.3); Monocytes Absolute Auto 0.6 X10*3/uL (0.1-1.2); Monocytes Percent Auto 7.8 % (2-11); Neutrophils Absolute Auto 4.6 X10*3/uL (2.0-8.3); Neutrophils Percent Auto 65.6 % (45-73); Platelet Count 234 X10*3/uL (160-400); Red Blood Count 4.45 X10*6/uL (4.20-5.50); Red Cell Distribution Width 13.1 % (11.0-16.0)
[2020-09-01 10:05] LABS: Anion Gap 14 (12-20); Blood Urea Nitrogen 9 mg/dL (9-16); Carbon Dioxide 25 mmol/L (22-29); Chloride 107 mmol/L (96-108); Creatinine Clr Calc Pharmacy 54.5; Estimated Glomerular Filt Rate 58; Glucose Random 160 mg/dL (60-115); Potassium 3.6 mmol/l (3.3-5.1); Sodium 142 mmol/L (135-145)
[2020-09-01 10:12] LABS: Calcium 8.5 mg/dL (8.4-10.2)
[2020-09-01] MEDS: 0.9 % Sodium Chloride 1,000 ML 75 ML IVCONT (13:14)
--- NOTE | 2020-09-01 13:55 | PM.GIPN ---
Subjective Subjective Date of Service: 09/01/20 Interval History: no bleeding Physical Exam Vital Signs: Vital Signs: Last Vital Signs Temp 96.3 F L 09/01/20 11:26 Pulse 70 09/01/20 11:26 Resp 20 09/01/20 11:26 BP 139/66 09/01/20 11:26 Pulse Ox 95 09/01/20 11:26 Body Mass Index 30.9 Const: General: cooperative, alert and awake GI: Inspection: Yes normal to inspection Palpation (GI): Soft to palpation and No hepatosplenomegaly present Extrem: General: Yes no clubbing, cyanosis or edema Objective Data Labs CBC & Chem 7: 09/01/20 09:01 09/01/20 09:01 Progress Note: A&P Assessment and plan (1) Colitis: Status: Acute Assessment and Plan: stool wbc neg hct stable advance diet, can d/c when tolerating diet will arrange out patient colonoscopy in about 8 weeks after recovered from acute episode. Time Spent With Patient Time: Total time spent is greater than 50% in coordination of care (as documented) at patient's floor/unit and/or counseling patient: 15 min Time with patient: 15 - 24 minutes
--- NOTE | 2020-09-01 15:56 | HO.PM.IMPN ---
Subjective Subjective Date of Service: 09/01/20 Interval History: patient seen and examined at bedside patient was reporting diarrhea but no blood in stool Constitutional Constitutional: Reports weakness Cardiovascular Cardiovascular: Denies dyspnea Respiratory Respiratory: Denies dyspnea Gastrointestinal Gastrointestinal: Reports abdominal pain, Reports diarrhea and Denies vomiting Neurologic Neurologic: Reports weakness Physical Exam Vital Signs: Vital Signs: Last Vital Signs Temp 96.3 F L 09/01/20 11:26 Pulse 70 09/01/20 11:26 Resp 20 09/01/20 11:26 BP 139/66 09/01/20 11:26 Pulse Ox 95 09/01/20 11:26 Body Mass Index 30.9 Const: General: cooperative, no acute distress, alert, awake and anxious GI: Inspection: Yes normal to inspection Palpation (GI): Soft to palpation and No hepatosplenomegaly present Extrem: General: Yes no clubbing, cyanosis or edema Objective Data Current Medications Generic Name Dose Route Start Last Admin Trade Name Freq PRN Reason Stop Dose Admin Acetaminophen 650 mg 08/30/20 17:34 Acetaminophen 325 Mg Tablet PO Q6H PRN Pain, Mild (Pain Scale 1-3) Atorvastatin Calcium 40 mg 08/31/20 09:00 09/01/20 09:31 Atorvastatin Calcium 40 Mg Tablet PO 40 mg DAILY JANETH Administration Ceftriaxone Sodium 1 gm/ 50 mls @ 100 mls/hr 08/30/20 11:00 09/01/20 10:22 Sodium Chloride IV Infused DAILY JANETH Infusion Metronidazole 500 mg in 100 mls @ 100 mls/hr 08/30/20 10:45 09/01/20 12:30 Flagyl IV Infused Q8H JANETH Infusion Sodium Chloride 1,000 mls @ 75 mls/hr 08/30/20 17:34 09/01/20 13:14 Ns IVCONT 75 mls/hr .[id number] JANETH Administration Latanoprost 1 drop 08/31/20 09:00 09/01/20 09:33 Latanoprost 0.005 % Ophth Nahomy 2.5 Ml Drops EYE-BOTH Not Given DAILY JANETH Metoprolol Tartrate 100 mg 08/31/20 09:00 09/01/20 09:31 Metoprolol Tartrate 100 Mg Tablet PO 100 mg BID JANETH Administration Protocol Ondansetron HCl 4 mg 08/30/20 17:34 Ondansetron Hcl 4 Mg/2 Ml Vial IVPUSH Q8H PRN Nausea and Vomiting Sodium Chloride 3 ml 08/30/20 17:34 09/01/20 09:33 0.9 % Sodium Chloride Flush 3 Ml Syringe IVFLUSH Not Given QSHIFT JANETH Labs CBC & Chem 7: 09/01/20 09:01 09/01/20 09:01 Microbiology Microbiology Results: Microbiology 08/30/20 03:48 Blood - Venous Blood Culture - Preliminary Coagulase-neg Staphyloccocus 08/30/20 03:48 Blood - Venous Blood Culture - Preliminary No growth after 48 hours. Assessment and Plan (1) Lower GI bleed: Status: Acute (2) Colitis: Status: Acute Assessment and Plan: 75 years old lady with PMH of hypertension, obesity and hyperlipidemia who presents to the hospital complaining of bright red blood per rectum for 1 day prior to presentation. Lower GI bleed likely secondary to colitis infectious versus inflammatory continue IV antibiotic 1 set of blood culture growing staph epidermidis likely contamination follow-up cultures seen by GI recommended medical management advanced diet as tolerated Hypertension blood pressure is stable hold antihypertensive given GI bleed and soft blood pressure DVT PPX SCDs given GI bleed
[2020-09-01] MEDS: Latanoprost 0.005 % Ophth Sol 2.5 ML DROPS 1 DROP EYE-BOTH (20:53)
[2020-09-02] MEDS: metroNIDAZOLE/NS 500 MG/100 ML PIGGYBACK 100 MG IV ×2 (02:43→10:45)
[2020-09-02] MEDS: 0.9 % Sodium Chloride 1,000 ML 75 ML IVCONT (04:20)
[2020-09-02 04:40] VITALS: BP 134/65; PULSE 66; RESP 18; TEMP 37.1; O2SAT 96
[2020-09-02 08:00] VITALS: BP 137/75; PULSE 64; RESP 18; TEMP 36.1; O2SAT 94
[2020-09-02] MEDS: cefTRIAXone sodium 1 GM in 0.9 % Sodium Chloride 50 ML IV (10:02)
[2020-09-02] MEDS: Atorvastatin Calcium 40 MG TABLET PO (10:03)
[2020-09-02] MEDS: Metoprolol Tartrate 100 MG TABLET PO (10:03)
--- NOTE | 2020-09-02 11:30 | MHC.CM.PN ---
Patient has been medically cleared for dc to home today, no services. Last IMM addressed on 08/31/2020.
--- NOTE | 2020-09-02 11:32 | PM.DS ---
DS: Providers Provider Date of admission: 08/30/20 10:43 Primary care physician: Merlin Dewitt MD Consults: 08/30/20 17:34 Consult to Gastroenterology Routine Consulting Provider: Joseph Silva Reason for consultation: Lower GI bleed, suspected colitis on CT scan DS: Diagnosis Discharge Diagnosis (1) Lower GI bleed: Status: Acute (2) Colitis: Status: Acute DS: Medications Discharge Medications Home Medications: Home Medications Medication Instructions Recorded Confirmed amlodipine 1 tab PO DAILY 08/30/20 08/30/20 atorvastatin 1 tab PO DAILY 08/30/20 08/30/20 hydrochlorothiazide 1 tab PO DAILY 08/30/20 08/30/20 latanoprost 1 drp OPHTHALMIC (EYE) DAILY 08/30/20 08/30/20 losartan 1 tab PO DAILY 08/30/20 08/30/20 metoprolol tartrate 1 tab PO BID 08/30/20 08/30/20 cholecalciferol (vitamin D3) 50 mcg PO DAILY 09/01/20 09/01/20 [Vitamin D3] DS: Summary Hospital Course Hospital Course: 75-year-old female admitted with colitis and lower GI bleed, Patient was started on IV Rocephin and Flagyl, blood cultures were sent, H&H was monitored closely, GI bleed was likely secondary to colitis, H&H remained stable, patient's symptoms improved, 1 set of blood culture grew Staph epidermidis likely contamination, patient was tolerating regular diet, GI bleed was resolved, H&H remained stable, patient was stable discharged on p.o. antibiotic Time Spent with Patient Time attestation: Total time spent providing and/or coordinating discharge services: Physical Exam Vital Signs: Vital Signs: Last Vital Signs Temp 96.9 F 09/02/20 08:00 Pulse 64 09/02/20 08:00 Resp 18 09/02/20 08:00 BP 137/75 09/02/20 08:00 Pulse Ox 94 09/02/20 08:00 Body Mass Index 30.9 Const: General: cooperative, no acute distress, alert, awake and anxious GI: Inspection: Yes normal to inspection Palpation (GI): Soft to palpation and No hepatosplenomegaly present Extrem: General: Yes no clubbing, cyanosis or edema DS: Data Data Completed and Pending Labs on day of discharge: 08/30/20 02:48 IV insert/maintain .Now 08/30/20 03:08 Type and Screen Stat Complete Blood Count Auto Diff Stat Comprehensive Met. Panel Stat [id number] Stat Prothrombin Time INR Stat 08/30/20 03:28 CT gi bleed abd pel wo/w con Stat 08/30/20 03:48 Lactic Acid Stat 08/30/20 03:50 0.9 % Sodium Chloride [Ns] 1,647 ml IV Wide Open mls/hr 08/30/20 03:55 SARS-CoV2/FLU/RSV Stat 08/30/20 04:19 iohexoL 350 MG/ML [Omnipaque 350 MG/ML] 80 ml IV ONCE ONE 08/30/20 05:12 Piperacillin Sodium/Tazobactam [Zosyn] 3.375 gm 0.9 % Sodium Chloride [Ns] 50 ml IV ONCE 08/30/20 05:19 Piperacillin Sodium/Tazobactam [Zosyn] 3.375 gm IV .STK-MED ONE 08/30/20 05:53 LORazepam [Ativan] 0.5 mg IVPUSH ONCE ONE 08/30/20 10:38 Transfer Order Routine 08/30/20 14:00 cefTRIAXone sodium [Rocephin] 1 gm .ROUTE .STK-MED ONE 08/30/20 17:34 0.9 % Sodium Chloride [Ns] 1,000 ml IVCONT 75 mls/hr 08/30/20 21:00 Metoprolol Tartrate [Lopressor] 50 mg PO BID 08/30/20 21:29 Basic Metabolic Panel Stat Magnesium Stat 08/31/20 05:37 Basic Metabolic Panel DAILY@0600 Complete Blood Count no Diff DAILY@0600 08/31/20 06:05 vancomycin HCL 1,500 mg 0.9 % Sodium Chloride [Ns] 250 ml IV ONCE 08/31/20 07:15 vancomycin HCL 750 mg IV .STK-MED ONE 08/31/20 09:15 cefTRIAXone sodium [Rocephin] 1 gm .ROUTE .STK-MED ONE 08/31/20 Breakfast NPO Diet 08/31/20 Lunch Clear Liquid Diet 08/31/20 20:15 Leukocytes Stool Qualitative ONCE 09/01/20 09:01 Basic Metabolic Panel Routine Complete Blood Count Auto Diff Routine 09/01/20 09:27 cefTRIAXone sodium [Rocephin] 1 gm .ROUTE .STK-MED ONE 09/02/20 09:59 cefTRIAXone sodium [Rocephin] 1 gm .ROUTE .STK-MED ONE Laboratory Last Values WBC 7.0 X10*3/uL (4.8-10.8) 09/01/20 09:01 RBC 4.45 X10*6/uL (4.20-5.50) 09/01/20 09:01 Hgb 12.5 g/dl (12.0-16.0) 09/01/20 09:01 Hct 40.3 % (37-47) 09/01/20 09:01 MCV 90.6 fL (80-98) 09/01/20 09:01 MCH 28.1 pg (27.0-33.0) 09/01/20 09:01 MCHC 31.0 g/dl (31.0-35.0) 09/01/20 09:01 RDW 13.1 % (11.0-16.0) 09/01/20 09:01 Plt Count 234 X10*3/uL (160-400) 09/01/20 09:01 MPV 10.8 fL (9.4-12.3) 09/01/20 09:01 Immature Gran % (Auto) 0.6 % (0.0-0.4) H 09/01/20 09:01 Neut % (Auto) 65.6 % (45-73) 09/01/20 09:01 Lymph % (Auto) 19.1 % (20-40) L 09/01/20 09:01 [place] % (Auto) 7.8 % (2-11) 09/01/20 09:01 Eos % (Auto) 6.8 % (0-4) H 09/01/20 09:01 Baso % (Auto) 0.1 % (0-2) 09/01/20 09:01 Lymph # (Auto) 1.3 X10*3/uL (1.2-4.9) 09/01/20 09:01 [place] # (Auto) 0.6 X10*3/uL (0.1-1.2) 09/01/20 09:01 Eos # (Auto) 0.5 X10*3/uL (0.0-0.4) H 09/01/20 09:01 Baso # (Auto) 0.0 X10*3/uL (0.0-0.2) 09/01/20 09:01 Abs Immat Gran (auto) 0.04 X10*3/uL (0.00-0.03) H 09/01/20 09:01 Absolute Neuts (auto) 4.6 X10*3/uL (2.0-8.3) 09/01/20 09:01 Absolute Nucleated RBC 0.000 X10*3/uL (0.0-0.012) 09/01/20 09:01 Nucleated RBC % (auto) 0.0 /100WBC (0.0-0.2) 09/01/20 09:01 PT 12.1 SEC (10.8-13.0) 08/30/20 03:08 INR 1.0 (0.9-1.1) 08/30/20 03:08 Sodium 142 mmol/L (135-145) 09/01/20 09:01 Potassium 3.6 mmol/l (3.3-5.1) 09/01/20 09:01 Chloride 107 mmol/L (96-108) 09/01/20 09:01 Carbon Dioxide 25 mmol/L (22-29) 09/01/20 09:01 Anion Gap 14 (12-20) 09/01/20 09:01 BUN 9 mg/dL (9-16) 09/01/20 09:01 Creatinine 0.95 mg/dL (0.5-1.4) 09/01/20 09:01 Estim Creat Clear Calc 54.5 09/01/20 09:01 Estimated GFR 58 09/01/20 09:01 Random Glucose 160 mg/dL (60-115) H D 09/01/20 09:01 Lactic Acid 1.7 mmol/L (0.5-2.0) 08/30/20 03:48 Calcium 8.5 mg/dL (8.4-10.2) 09/01/20 09:01 Magnesium 1.6 mg/dL (1.6-2.6) 08/30/20 21:29 Total Bilirubin 1.2 mg/dL (0.0-1.0) H 08/30/20 03:08 AST 11 U/L (5-31) 08/30/20 03:08 ALT 15 U/L (0-31) 08/30/20 03:08 Alkaline Phosphatase 78 U/L (39-117) 08/30/20 03:08 Total Protein 7.2 g/dL (6.5-8.0) 08/30/20 03:08 Albumin 4.2 g/dL (3.5-5.0) 08/30/20 03:08 Urine Color YELLOW 08/30/20 03:12 Urine Appearance CLEAR 08/30/20 03:12 Urine pH 6.0 (5.0-8.0) 08/30/20 03:12 Ur Specific [place] 1.020 (1.005-1.025) 08/30/20 03:12 Urine Protein NEG MG/DL (NEG-TRACE) 08/30/20 03:12 Urine Glucose (UA) NEG MG/DL (NEG) 08/30/20 03:12 Urine Ketones NEG MG/DL (NEG) 08/30/20 03:12 Urine Blood TRACE (NEG) 08/30/20 03:12 Urine Nitrite NEG (NEG) 08/30/20 03:12 Ur Leukocyte Esterase NEG (NEG) 08/30/20 03:12 Urine RBC 0 /HPF (0) 08/30/20 03:12 Urine WBC 0-2 /HPF (0-4) 08/30/20 03:12 Ur Squamous Epith Cells 3+ /LPF 08/30/20 03:12 Urine Bacteria 1+ /LPF 08/30/20 03:12 Hyaline Casts 0-2 /LPF 08/30/20 03:12 Granular Casts 0-2 /LPF 08/30/20 03:12 Urine Mucus 1+ /LPF 08/30/20 03:12 Urine Yeast 2+ /HPF 08/30/20 03:12 Stool Occult Blood POS (NEG) 08/30/20 03:08 Stool Leukocytes, Qual NEGATIVE (NEGATIVE) 08/31/20 20:15 Coronavirus (PCR) NEGATIVE (Negative) 08/30/20 03:55 Influenza Type A (PCR) NEGATIVE (Negative) 08/30/20 03:55 Influenza Type B (PCR) NEGATIVE (Negative) 08/30/20 03:55 RSV RNA Qual (PCR) NEGATIVE (Negative) 08/30/20 03:55 Blood Type A Positive 08/30/20 03:08 Antibody Screen NEGATIVE 08/30/20 03:08 Preliminary micro results at discharge 08/30/20 03:48 Blood Culture - Preliminary Blood - Venous Coagulase-neg Staphyloccocus 08/30/20 03:48 Blood Culture - Preliminary Blood - Venous No growth after 48 hours. Discharge Plan Discharge Anticipated Discharge Date/Time: 09/02/20 11:25 Patient Disposition: Home, Self-Care Referrals: Merlin Dewitt MD [Primary Care Provider] - Discharge Medications: New cefuroxime axetil 500 mg tablet 500 mg PO BID 10 Days Qty: 20 RF: 0 metronidazole [Flagyl] 500 mg tablet 500 mg PO TID Qty: 30 RF: 0 Continued losartan 50 mg tablet 1 tab PO DAILY RF: 0 latanoprost 0.005 % drops 1 drp ophthalmic (eye) DAILY RF: 0 atorvastatin 40 mg tablet 1 tab PO DAILY RF: 0 metoprolol tartrate 100 mg tablet 1 tab PO BID RF: 0 hydrochlorothiazide 50 mg tablet 1 tab PO DAILY RF: 0 amlodipine 10 mg tablet 1 tab PO DAILY RF: 0 cholecalciferol (vitamin D3) [Vitamin D3] 50 mcg (2,000 unit) Tablet 50 mcg PO DAILY RF: 0 Discharge Orders: Discharge Order (Routine); Ordered 09/02/20 Ordered By: Erich Mayes Diet: advance to usual diet Activity on Discharge: As tolerated Discharge Date/Time: 09/02/20 14:46 Visit Report Forms: Patient Portal Discharge page Care Plan Goals: treat colitis Health Concerns: colitis Plan of Treatment: po antibiotics
[2020-09-02 12:00] VITALS: BP 134/78; PULSE 70; RESP 18; TEMP 36.1; O2SAT 96
[2020-09-02 12:16] LABS: MANUAL DIFF FLAG NO
[2020-09-02 12:18] LABS: Basophils Percent Auto 0.4 % (0-2); Eosinophils Absolute Auto 0.5 X10*3/uL (0.0-0.4); Eosinophils Percent Auto 6.5 % (0-4); Hematocrit 39.1 % (37-47); Hemoglobin 12.4 g/dl (12.0-16.0); Imm Gran Abs Auto 0.03 X10*3/uL (0.00-0.03); Imm Gran Pct Auto 0.4 % (0.0-0.4); Lymphocytes Absolute Auto 1.8 X10*3/uL (1.2-4.9); Lymphocytes Percent Auto 23.5 % (20-40); Mean Corpuscular HGB Conc 31.7 g/dl (31.0-35.0); Mean Corpuscular Hemoglobin 28.1 pg (27.0-33.0); Mean Corpuscular Volume 88.7 fL (80-98); Mean Platelet Volume 10.7 fL (9.4-12.3); Monocytes Absolute Auto 0.8 X10*3/uL (0.1-1.2); Monocytes Percent Auto 10.2 % (2-11); Neutrophils Absolute Auto 4.5 X10*3/uL (2.0-8.3); Platelet Count 233 X10*3/uL (160-400); Red Blood Count 4.41 X10*6/uL (4.20-5.50); White Blood Count 7.6 X10*3/uL (4.8-10.8)
== END 2020-09-02 14:46 | disposition home or self-care (01) | DRG 392 ==
LOC: HO.ED 05:24 → HO.IMC 16:40
PROVIDERS: Internal Medicine; Admitting Provider Student in an Organized Health Care Education/Training Program; Emergency Provider Student in an Organized Health Care Education/Training Program; Visit Provider Internal Medicine
DX: K52.9 Noninfective gastroenteritis and colitis, unspecified (principal); E78.5 Hyperlipidemia, unspecified; I10 Essential (primary) hypertension; E66.9 Obesity, unspecified; Z20.828 Contact with and (suspected) exposure to other viral communicable diseases; Z68.30 Body mass index [BMI] 30.0-30.9, adult; Z79.899 Other long term (current) drug therapy
CPT/HCPCS: 0241U; 36415; 74178; 80048; 80053; 81001; 82272; 83605; 83735; 85025; 85027; 85610; 86850; 86900; 86901; 87040; 87147; 89055; 96365; 96375; 99285; J0696; J2060; J2543; J3370; Q9967

== ENCOUNTER 2020-11-23 16:21 | Outpatient (REF) | payer MEDICARE, SELFPAY ==
[2020-11-23 16:53] LABS: MANUAL DIFF FLAG NO
[2020-11-23 16:55] LABS: Basophils Percent Auto 0.2 % (0-2); Eosinophils Absolute Auto 0.2 X10*3/uL (0.0-0.4); Eosinophils Percent Auto 1.9 % (0-4); Hematocrit 44.4 % (37-47); Hemoglobin 14.4 g/dl (12.0-16.0); Imm Gran Abs Auto 0.03 X10*3/uL (0.00-0.03); Imm Gran Pct Auto 0.4 % (0.0-0.4); Lymphocytes Absolute Auto 1.6 X10*3/uL (1.2-4.9); Lymphocytes Percent Auto 19.7 % (20-40); Mean Corpuscular HGB Conc 32.4 g/dl (31.0-35.0); Mean Corpuscular Hemoglobin 28.4 pg (27.0-33.0); Mean Corpuscular Volume 87.6 fL (80-98); Mean Platelet Volume 10.6 fL (9.4-12.3); Monocytes Absolute Auto 0.7 X10*3/uL (0.1-1.2); Monocytes Percent Auto 8.2 % (2-11); Neutrophils Absolute Auto 5.7 X10*3/uL (2.0-8.3); Neutrophils Percent Auto 69.6 % (45-73); Platelet Count 249 X10*3/uL (160-400); Red Blood Count 5.07 X10*6/uL (4.20-5.50); Red Cell Distribution Width 12.6 % (11.0-16.0); White Blood Count 8.3 X10*3/uL (4.8-10.8)
[2020-11-23 17:20] LABS: Alanine Aminotransferase 20 U/L (0-31); Albumin Level 4.4 g/dL (3.5-5.0); Alkaline Phosphatase 83 U/L (39-117); Anion Gap 15 (12-20); Aspartate Amino Transferase 17 U/L (5-31); Bilirubin Total 1.6 mg/dL (0.0-1.0); Blood Urea Nitrogen 21 mg/dL (9-16); Calcium 9.6 mg/dL (8.4-10.2); Carbon Dioxide 29 mmol/L (22-29); Chloride 100 mmol/L (96-108); Estimated Glomerular Filt Rate 44; Glucose Random 133 mg/dL (60-115); Magnesium 1.8 mg/dL (1.6-2.6); Potassium 3.4 mmol/L (3.3-5.1); Sodium 141 mmol/L (135-145); Total Protein 7.6 g/dL (6.5-8.0)
[2020-11-23 17:31] LABS: Estimated Average Glucose 120 mg/dL; Hemoglobin A1c % 5.8 %
[2020-11-23 17:41] LABS: Thyroid Stimulating Hormone 0.79 uIU/mL (0.32-4.0); Vitamin D 25-OH Total 34.7 ng/mL (>30)
[2020-11-26 16:22] LABS: Vitamin B12 337 pg/mL (200-900)
== END 2020-11-23 16:22 | disposition home or self-care (01) ==
LOC: HO.LAB 16:21
PROVIDERS: PCP Internal Medicine; Visit Provider Internal Medicine
DX: I10 Essential (primary) hypertension (principal); R74.01 Elevation of levels of liver transaminase levels; E78.00 Pure hypercholesterolemia, unspecified; E55.9 Vitamin D deficiency, unspecified; R73.03 Prediabetes
CPT/HCPCS: 36415; 80053; 82306; 82607; 83036; 83735; 84439; 84443; 85025

== ENCOUNTER → 2020-12-30 09:16 | Outpatient (REF) | payer MEDICARE, SELFPAY ==
--- NOTE | 2020-12-30 09:30 | CA_ITS ---
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 Normal LV systolic function with impaired relaxation filling pattern 2. Normal cardiac valvular Doppler 3. Normal RV systolic pressure 4. No pericardial effusion Findings Left Ventricle Normal left ventricular size, thickness, and systolic function. The visually estimated ejection fraction is between 60-65%. Spectral Doppler is indicative of an impaired relaxation filling pattern. E/E prime ratio is between 8 and 15 consistent with indeterminate filling pressures. Right Ventricle Normal right ventricular cavity size and systolic function. Atria The left atrium is normal in size. There is lipomatous hypertrophy of the interatrial septum. There is no evidence of interatrial shunt. The right atrium is normal in size. Aortic Valve Normal aortic valve structure and function. There is no aortic valve stenosis. There is no aortic valve regurgitation. Mitral Valve There is mild anterior mitral leaflet thickening. There is trace mitral valve regurgitation. There is no mitral valve stenosis. Pulmonic Valve The pulmonic valve was not well visualized. Tricuspid Valve Likely normal tricuspid valve structure and function. There is mild tricuspid valve regurgitation. The right ventricular systolic pressure is normal. The right ventricular systolic pressure is 27 mmHg. Normal right atrial pressure. There is no evidence of pulmonary hypertension. Great Vessels All visible segments of the aorta are normal in size. The pulmonary artery was not well visualized. Venous The inferior vena cava is normal in size and collapses greater than 50% with inspiration. Pericardium/Pleural There is no evidence of pericardial effusion. Prior Study Comparison No previous study in the last 5 years for comparison Measurements 2D Linear Measurements IVSd: 0.99 0.6-0.9/0.6-1.0 cm LVIDd: 4.61 3.9-5.3/4.2-5.9 cm LVIDd Index: 2.44 2.4-3.2/2.2-3.1 cm/m2 LVIDs: 3.16 2.0-3.6 cm LVPWd: 1.09 0.7-1.1 cm LA Diam: 3.60 2.7-3.8/3.0-4.0 cm LAIDs Index: 1.90 1.5-2.3 cm/m2 LV Mass: 210.06 67-162/88-224 g LV Mass Index: 111.14 43-95/49-115 g/m2 LVOT Diam: 1.80 3.0+(-)1.3 cm 2D Systolic Function EF 4C: 50.60 >55% EF 2C: 75.10 >55% EF BiP: 64.00 >55% Mitral Valve MV Pk E: 1.01 MV PK A: 1.01 MV Decel Time: 143.00 E/A: 1.00 E'Lateral: 7.94 E'Medial: 6.96 E/E' Med: 14.50 E/E' Lat: 12.70 PHT: 42.00 MVA PHT: 5.24 Decel [place]: 7.04 Aortic Valve AoV Pk Wolf: 1.49 AoV Pk Grad: 9.00 LVOT LVOT Pk Wolf: 1.34 LVOT Mn Wolf: 0.80 LVOT VTI: 0.34 LVOT Pk Grad: 7.00 LVOT Mn Grad: 3.00 LVOT Diam: 1.80 LVOT Area: 2.54 Diastolic Function MV Pk E: 1.01 MV Pk A: 1.01 E/A: 1.00 E'Medial: 6.96 E/E' Med: 14.50 E' Laterial: 7.94 E/E' Lat: 12.70 Tricuspid Valve TR Pk Wolf: 2.43 TR Pk Grad: 24.00 RA Press: 3.00 RVSP: 27.00 Great Vessels Aorta Ao Asc: 3.00 2.1-3.4 cm Updated in Other Vendor System with Status of Final Brannon Carey MD electronically signed on 12/30/2020 5:46:59 PM with status of Final
== END ==
LOC: HO.CARD 09:16
PROVIDERS: Visit Provider Internal Medicine
DX: I49.8 Other specified cardiac arrhythmias (principal); I10 Essential (primary) hypertension
CPT/HCPCS: 93306

== ENCOUNTER 2021-02-24 10:34 | Outpatient (REF) | payer MEDICARE, SELFPAY ==
[2021-02-24 13:18] LABS: MANUAL DIFF FLAG NO
[2021-02-24 13:22] LABS: Basophils Percent Auto 0.4 % (0-2); Eosinophils Absolute Auto 0.2 X10*3/uL (0.0-0.4); Eosinophils Percent Auto 3.3 % (0-4); Hematocrit 44.1 % (37-47); Imm Gran Abs Auto 0.01 X10*3/uL (0.00-0.03); Imm Gran Pct Auto 0.2 % (0.0-0.4); Lymphocytes Absolute Auto 1.2 X10*3/uL (1.2-4.9); Lymphocytes Percent Auto 23.7 % (20-40); Mean Corpuscular HGB Conc 31.7 g/dl (31.0-35.0); Mean Corpuscular Hemoglobin 28.3 pg (27.0-33.0); Mean Corpuscular Volume 89.1 fL (80-98); Mean Platelet Volume 11.6 fL (9.4-12.3); Monocytes Absolute Auto 0.5 X10*3/uL (0.1-1.2); Monocytes Percent Auto 10.4 % (2-11); Neutrophils Absolute Auto 3.2 X10*3/uL (2.0-8.3); Platelet Count 243 X10*3/uL (160-400); Red Blood Count 4.95 X10*6/uL (4.20-5.50); Red Cell Distribution Width 12.8 % (11.0-16.0); White Blood Count 5.2 X10*3/uL (4.8-10.8)
[2021-02-24 13:40] LABS: Estimated Average Glucose 120 mg/dL; Hemoglobin A1c % 5.8 %
[2021-02-24 13:49] LABS: Alanine Aminotransferase 32 U/L (0-31); Albumin Level 4.2 g/dL (3.5-5.0); Alkaline Phosphatase 74 U/L (39-117); Anion Gap 16 (12-20); Aspartate Amino Transferase 24 U/L (5-31); Bilirubin Total 1.6 mg/dL (0.0-1.0); Blood Urea Nitrogen 16 mg/dL (9-16); Calcium 9.3 mg/dL (8.4-10.2); Carbon Dioxide 25 mmol/L (22-29); Chloride 101 mmol/L (96-108); Estimated Glomerular Filt Rate 53; Glucose Random 118 mg/dL (60-115); Potassium 3.6 mmol/L (3.3-5.1); Sodium 138 mmol/L (135-145); Total Protein 7.4 g/dL (6.5-8.0)
== END 2021-02-24 10:35 | disposition home or self-care (01) ==
LOC: HO.10HDL 10:34
PROVIDERS: Visit Provider Internal Medicine
DX: I12.9 Hypertensive chronic kidney disease with stage 1 through stage 4 chronic kidney disease, or unspecified chronic kidney disease (principal); N18.9 Chronic kidney disease, unspecified; R73.03 Prediabetes
CPT/HCPCS: 36415; 80053; 83036; 85025

== ENCOUNTER 2021-06-16 10:11 | Outpatient (REF) | payer MEDICARE, SELFPAY ==
[2021-06-16 14:07] LABS: Estimated Average Glucose 120 mg/dL; Hemoglobin A1C 150.2265 umol/L; Hemoglobin A1c % 5.8 %
[2021-06-16 14:34] LABS: Alanine Aminotransferase 20 U/L (0-31); Albumin Level 4.2 g/dL (3.5-5.0); Alkaline Phosphatase 74 U/L (39-117); Anion Gap 16 (12-20); Aspartate Amino Transferase 17 U/L (5-31); Bilirubin Total 2.1 mg/dL (0.0-1.0); Blood Urea Nitrogen 18 mg/dL (9-16); Calcium 9.6 mg/dL (8.4-10.2); Carbon Dioxide 25 mmol/L (22-29); Chloride 102 mmol/L (96-108); Estimated Glomerular Filt Rate 52; Glucose Fasting 108 mg/dL (60-99); Potassium 3.9 mmol/L (3.3-5.1); Sodium 139 mmol/L (135-145); Total Protein 7.4 g/dL (6.5-8.0)
== END 2021-06-16 10:12 | disposition home or self-care (01) ==
LOC: HO.10HDL 10:11
PROVIDERS: Visit Provider Internal Medicine
DX: I12.9 Hypertensive chronic kidney disease with stage 1 through stage 4 chronic kidney disease, or unspecified chronic kidney disease (principal); N18.9 Chronic kidney disease, unspecified; R73.03 Prediabetes
CPT/HCPCS: 36415; 80053; 83036

== ENCOUNTER 2021-08-30 12:18 | Outpatient (REF) | payer MEDICARE, SELFPAY ==
[2021-08-30 14:06] LABS: MANUAL DIFF FLAG NO
[2021-08-30 14:12] LABS: Basophils Percent Auto 0.3 % (0-2); Eosinophils Absolute Auto 0.2 X10*3/uL (0.0-0.4); Eosinophils Percent Auto 2.9 % (0-4); Hematocrit 44.5 % (37.0-47.0); Hemoglobin 14.3 g/dl (12.0-16.0); Imm Gran Abs Auto 0.02 X10*3/uL (0.00-0.03); Imm Gran Pct Auto 0.3 % (0.0-0.4); Lymphocytes Absolute Auto 1.4 X10*3/uL (1.2-4.9); Mean Corpuscular HGB Conc 32.1 g/dl (31.0-35.0); Mean Corpuscular Hemoglobin 28.5 pg (27.0-33.0); Mean Corpuscular Volume 88.6 fL (80.0-98.0); Mean Platelet Volume 11.6 fL (9.4-12.3); Monocytes Absolute Auto 0.7 X10*3/uL (0.1-1.2); Monocytes Percent Auto 11.7 % (2-11); Neutrophils Absolute Auto 3.6 x10*3/uL (2.0-8.3); Neutrophils Percent Auto 60.8 % (45-73); Platelet Count 236 X10*3/uL (160-400); Red Blood Count 5.02 X10*6/uL (4.20-5.50); Red Cell Distribution Width 12.6 % (11.0-16.0); White Blood Count 5.9 X10*3/uL (4.8-10.8)
[2021-08-30 14:31] LABS: Estimated Average Glucose 123 mg/dL; Hemoglobin A1c % 5.9 %
[2021-08-30 14:41] LABS: Anion Gap 16 (12-20); Blood Urea Nitrogen 18 mg/dL (9-16); Calcium 9.7 mg/dL (8.4-10.2); Carbon Dioxide 26 mmol/L (22-29); Chloride 100 mmol/L (96-108); Estimated Glomerular Filt Rate 48; Glucose Random 111 mg/dL (60-115); Potassium 3.5 mmol/L (3.3-5.1); Sodium 138 mmol/L (135-145)
== END 2021-08-30 12:19 | disposition home or self-care (01) ==
LOC: HO.10HDL 12:18
PROVIDERS: Visit Provider Internal Medicine
DX: I12.9 Hypertensive chronic kidney disease with stage 1 through stage 4 chronic kidney disease, or unspecified chronic kidney disease (principal); N18.9 Chronic kidney disease, unspecified; R73.03 Prediabetes
CPT/HCPCS: 36415; 80048; 83036; 85025

== ENCOUNTER 2021-12-08 10:18 | Outpatient (REF) | payer MEDICARE, SELFPAY ==
[2021-12-08 14:45] LABS: Anion Gap 14 (12-20); Blood Urea Nitrogen 19 mg/dL (9-16); Calcium 9.3 mg/dL (8.4-10.2); Carbon Dioxide 29 mmol/L (22-29); Chloride 99 mmol/L (96-108); Estimated Glomerular Filt Rate 48; Glucose Random 118 mg/dL (60-115); Potassium 3.6 mmol/L (3.3-5.1); Sodium 138 mmol/L (135-145)
== END 2021-12-08 10:19 | disposition home or self-care (01) ==
LOC: HO.10HDL 10:18
PROVIDERS: Visit Provider Internal Medicine
DX: I12.9 Hypertensive chronic kidney disease with stage 1 through stage 4 chronic kidney disease, or unspecified chronic kidney disease (principal); N18.9 Chronic kidney disease, unspecified
CPT/HCPCS: 36415; 80048

== ENCOUNTER 2022-03-23 10:04 | Outpatient (REF) | payer MEDICARE, SELFPAY ==
[2022-03-23 14:11] LABS: Estimated Average Glucose 120 mg/dL; Hemoglobin A1C 149.8106 umol/L; Hemoglobin A1c % 5.8 %
[2022-03-23 14:15] LABS: Anion Gap 13 (12-20); Blood Urea Nitrogen 16 mg/dL (9-16); Calcium 9.2 mg/dL (8.4-10.2); Carbon Dioxide 29 mmol/L (22-29); Chloride 101 mmol/L (96-108); Estimated Glomerular Filt Rate 49; Glucose Random 118 mg/dL (60-115); Potassium 3.8 mmol/L (3.3-5.1); Sodium 139 mmol/L (135-145)
== END 2022-03-23 10:05 | disposition home or self-care (01) ==
LOC: HO.10HDL 10:04
PROVIDERS: Visit Provider Internal Medicine
DX: I12.9 Hypertensive chronic kidney disease with stage 1 through stage 4 chronic kidney disease, or unspecified chronic kidney disease (principal); N18.9 Chronic kidney disease, unspecified; R73.03 Prediabetes
CPT/HCPCS: 36415; 80048; 83036

== ENCOUNTER 2022-11-01 08:45 | Outpatient (REF) | payer MEDICARE, SELFPAY ==
[2022-11-01 10:37] LABS: MANUAL DIFF FLAG NO
[2022-11-01 10:45] LABS: Basophils Percent Auto 0.3 % (0-2); Eosinophils Absolute Auto 0.2 X10*3/uL (0.0-0.4); Eosinophils Percent Auto 3.4 % (0-4); Hematocrit 42.1 % (37.0-47.0); Hemoglobin 13.7 g/dl (12.0-16.0); Imm Gran Abs Auto 0.02 X10*3/uL (0.00-0.03); Imm Gran Pct Auto 0.3 % (0.0-0.4); Lymphocytes Absolute Auto 1.3 X10*3/uL (1.2-4.9); Lymphocytes Percent Auto 22.1 % (20-40); Mean Corpuscular HGB Conc 32.5 g/dl (31.0-35.0); Mean Corpuscular Hemoglobin 28.6 pg (27.0-33.0); Mean Corpuscular Volume 87.9 fL (80.0-98.0); Mean Platelet Volume 11.7 fL (9.4-12.3); Monocytes Absolute Auto 0.6 X10*3/uL (0.1-1.2); Monocytes Percent Auto 9.7 % (2-11); Neutrophils Absolute Auto 3.8 x10*3/uL (2.0-8.3); Neutrophils Percent Auto 64.2 % (45-73); Platelet Count 175 X10*3/uL (160-400); Red Blood Count 4.79 X10*6/uL (4.20-5.50); Red Cell Distribution Width 12.9 % (11.0-16.0)
[2022-11-01 11:05] LABS: Estimated Average Glucose 126 mg/dL
[2022-11-01 11:46] LABS: Alanine Aminotransferase 13 U/L (0-31); Alkaline Phosphatase 73 U/L (39-117); Anion Gap 13 (12-20); Aspartate Amino Transferase 13 U/L (5-31); Bilirubin Total 2.1 mg/dL (0.0-1.0); Blood Urea Nitrogen 21 mg/dL (9-16); Calcium 9.2 mg/dL (8.4-10.2); Carbon Dioxide 29 mmol/L (22-29); Chloride 103 mmol/L (96-108); Cholesterol 162 mg/dL; Estimated Glomerular Filt Rate 48; Glucose Fasting 111 mg/dL (60-99); HDL Cholesterol 58 mg/dL; LDL Cholesterol Calculated 79 mg/dl; Potassium 3.9 mmol/L (3.3-5.1); Sodium 141 mmol/L (135-145); Total Protein 6.7 g/dL (6.5-8.0); Triglycerides 126 mg/dL
== END 2022-11-01 08:46 | disposition home or self-care (01) ==
LOC: HO.10HDL 08:45
PROVIDERS: Visit Provider Internal Medicine
DX: I10 Essential (primary) hypertension (principal); E78.00 Pure hypercholesterolemia, unspecified
CPT/HCPCS: 36415; 80053; 80061; 83036; 85025

== ENCOUNTER 2023-02-24 08:08 | Outpatient (REF) | payer MEDICARE, SELFPAY ==
[2023-02-24 11:07] LABS: Estimated Average Glucose 114 mg/dL; Hemoglobin A1c % 5.6 %
[2023-02-24 11:10] LABS: Anion Gap 13 (12-20); Blood Urea Nitrogen 18 mg/dL (9-16); Calcium 9.8 mg/dL (8.4-10.2); Carbon Dioxide 30 mmol/L (22-29); Chloride 104 mmol/L (96-108); Estimated Glomerular Filt Rate 46; Glucose Random 117 mg/dL (60-115); Potassium 4.1 mmol/L (3.3-5.1); Sodium 143 mmol/L (135-145)
== END 2023-02-24 08:09 | disposition home or self-care (01) ==
LOC: HO.10HDL 08:08
PROVIDERS: Visit Provider Internal Medicine
DX: I12.9 Hypertensive chronic kidney disease with stage 1 through stage 4 chronic kidney disease, or unspecified chronic kidney disease (principal); N18.9 Chronic kidney disease, unspecified; R73.03 Prediabetes
CPT/HCPCS: 36415; 80048; 83036

== ENCOUNTER 2023-09-06 07:38 | Outpatient (REF) | payer MEDICARE, SELFPAY ==
[2023-09-06 11:24] LABS: Alanine Aminotransferase 14 U/L (0-31); Albumin Level 3.9 g/dL (3.5-5.0); Alkaline Phosphatase 75 U/L (39-117); Anion Gap 16 (12-20); Aspartate Amino Transferase 13 U/L (5-31); Bilirubin Total 1.3 mg/dL (0.0-1.0); Blood Urea Nitrogen 22 mg/dL (9-16); Calcium 9.5 mg/dL (8.4-10.2); Carbon Dioxide 28 mmol/L (22-29); Chloride 103 mmol/L (96-108); Cholesterol 173 mg/dL (<200); Estimated Glomerular Filt Rate 44; Glucose Fasting 123 mg/dL (60-99); HDL Cholesterol 63 mg/dL (>40); LDL Cholesterol Calculated 79 mg/dL (<100); Potassium 3.7 mmol/L (3.3-5.1); Sodium 143 mmol/L (135-145); Total Protein 7.2 g/dL (6.5-8.0); Triglycerides 157 mg/dL (<150)
== END 2023-09-06 07:39 | disposition home or self-care (01) ==
LOC: HO.10HDL 07:38
PROVIDERS: Visit Provider Internal Medicine
DX: I12.9 Hypertensive chronic kidney disease with stage 1 through stage 4 chronic kidney disease, or unspecified chronic kidney disease (principal); E78.00 Pure hypercholesterolemia, unspecified; N18.9 Chronic kidney disease, unspecified
CPT/HCPCS: 36415; 80053; 80061

== ENCOUNTER 2023-12-14 15:03 | Emergency (ER) | payer MEDICARE, SELFPAY ==
--- NOTE | ~2023-12-14 | CT_ITS ---
EXAMINATION: CT ABDOMEN AND PELVIS WITH CONTRAST CLINICAL INFORMATION: Lower abdominal pain. COMPARISON: 08/30/2020 TECHNIQUE: Multidetector volumetric images were obtained from the superior aspect of the liver through the pubic symphysis following administration 85 mL of Omnipaque 350 intravenous contrast. Sagittal and coronal reformatted images were obtained on the technologist's workstation. Oral contrast: No This CT examination was performed using dose optimization techniques as appropriate, variously including the following: *Automated exposure control *Adjustment of mA and/or kV according to patient size (this includes techniques or standardized protocols for targeted exams where dose is matched to indication/reason for exam; i.e. extremities or head) *Use of iterative reconstruction technique DLP: 766 mGy-cm FINDINGS: LUNG BASES: There is scarring at both lung bases. LIVER, GALLBLADDER, AND BILIARY TREE: There is a stable subcentimeter hypodensity dome of the liver. There is an enhancing 1.2 cm mass left lobe of the liver which was seen previously. There is no intrahepatic biliary duct dilatation. A few gallstones are noted. PANCREAS: Unremarkable. SPLEEN: Unremarkable. ADRENAL GLANDS: Unremarkable. KIDNEYS AND URETERS: The kidneys are normal in size, shape, and attenuation. No hydronephrosis, hydroureter, or calculi seen. There are a few scattered bilateral renal cysts measuring up to 2.3 cm midpole right kidney. BLADDER: Unremarkable. GASTROINTESTINAL TRACT: There are diverticula of the distal descending and sigmoid colon with minimal infiltrative change along a single diverticula of the proximal sigmoid colon. The appendix is visualized and is within normal limits. ABDOMINAL WALL: No significant hernia is appreciated. LYMPH NODES: Normal. VASCULAR: Unremarkable. PELVIC VISCERA: Unremarkable. OSSEOUS STRUCTURES: Unremarkable. CT/CT abdomen pelvis w IV con IMPRESSION: Diverticulosis of the distal descending and sigmoid colon with minimal infiltrative change along a single diverticula of the proximal sigmoid colon which may reflect mild diverticulitis. Enhancing mass left upper lobe of the liver was seen previously and is likely a hemangioma. Cholelithiasis. Fleischner guidelines were followed.
[2023-12-14 15:13] VITALS: BP 158/63; PULSE 65; RESP 17; TEMP 36.9; O2SAT 97; BMI 34.6
--- NOTE | 2023-12-14 15:14 | ED_ITS ---
HPI - General Adult General Chief complaint: General Medical Stated complaint: Blood in stool, diarrhea Time Seen by Provider: 12/14/23 21:03 Source: patient and old records reviewed Mode of arrival: ambulatory Limitations: no limitations History of Present Illness HPI narrative: 78 yo female with PMH of HTN and rectovaginal fistula s/p repair several years ago, normal colonoscopy 15 years ago not on blood thinners here with c/o diarrhea starting last night that lasted all night then this AM had mucousy bloody pink tinged stool. She denies fevers, n/v. She has mild diffuse pain. No travel, no abx use, no food exposures. MD complaint: pain, diarrhea Onset (ago): day(s) (last night) Location: abdomen Radiation: non-radiation Severity: mild Quality: other (cramping) Pain Consistency: intermittent Relieving factors: none Associated symptoms: denies other symptoms Treatments prior to arrival: none Related Data Home Medications Medication Instructions Recorded Confirmed amlodipine 10 mg tablet 1 tab PO DAILY 08/30/20 08/30/20 atorvastatin 40 mg tablet 1 tab PO DAILY 08/30/20 08/30/20 hydrochlorothiazide 50 mg tablet 1 tab PO DAILY 08/30/20 08/30/20 latanoprost 0.005 % eye drops 1 drp ophthalmic (eye) DAILY 08/30/20 08/30/20 losartan 50 mg tablet 1 tab PO DAILY 08/30/20 08/30/20 metoprolol tartrate 100 mg tablet 1 tab PO BID 08/30/20 08/30/20 cholecalciferol (vitamin D3) 50 50 mcg PO DAILY 09/01/20 09/01/20 mcg (2,000 unit) tablet (Vitamin D3) Previous Rx's Medication Instructions Recorded cefuroxime axetil 500 mg tablet 500 mg PO BID 10 days #20 tabs 09/02/20 metronidazole 500 mg tablet 500 mg PO TID #30 tabs 09/02/20 (Flagyl) amoxicillin 875 mg-potassium 1 tab PO BID #13 tabs 12/15/23 clavulanate 125 mg tablet Allergies Allergy/AdvReac Type Severity Reaction Status Date / Time No Known Allergies Allergy Verified 12/14/23 15:13 Review of Systems 2 Review of Systems: Constitutional : No Weight loss, No Fever, No Chills ENT/Mouth : No sore throat, No Rhinorrhea Eyes: No Swelling, No Redness Cardiovascular : No Chest Pain, No SOB, NoEdema Respiratory : No Cough, No Sputum, No Wheezing Gastrointestinal : no Nausea, no Vomiting, positive Diarrhea, positive abdominal Pain, No Hematochezia, No Melena Genitourinary : No Dysuria, No Urinary Frequency, No Hematuria, No Urgency Musculoskeletal : No joint pain, No Myalgias, No Joint Swelling Skin : No Skin Lesions, No rash Neuro : No Weakness, No Numbness, No Dizziness, No Headache Psych : No Anxiety/Panic, No Depression Heme/Lymph: No Bruising, No Lymphadenopathy Endocrine : No Polyuria, No Polydipsia All other systems reviewed and are negative. [facility] Past Medical History Attestation statement: The following information was validated with the patient. Source: old records reviewed Medical History Glaucoma High cholesterol HTN (hypertension) S/p breast implant removal Vaginal fistula Tonsillectomy planned Aplasia of uterus Social History Social History Household Members: None Housing: House Do you presently have visiting nurse or other home services: No Alcohol intake: never Smoked in Last 30 Days: No Advance Directives: No Advance Directives Information Provided: No service: No Current occupational status: retired Physical Exam ED Vital Signs: Vital Signs - 24 hr 12/14/23 15:13 12/14/23 19:22 12/14/23 20:44 Temperature 98.5 F 97.8 F 97.5 F Pulse Rate 65 68 69 Respiratory Rate 17 16 16 Blood Pressure 158/63 H 158/56 H 147/69 H Pulse Oximetry 97 96 95 Oxygen Delivery Method Room Air Room Air Room Air 12/14/23 22:45 Temperature 97.8 F Pulse Rate 75 Respiratory Rate 14 Blood Pressure 138/50 L Pulse Oximetry 93 Oxygen Delivery Method Room Air BMI result Body Mass Index 34.6 Appearance: Alert. Oriented X3. No acute distress. Eyes: Pupils equal, round and reactive to light. ENT: Pharynx normal. Neck: Normal inspection. Neck supple. CVS: Normal heart rate and rhythm. Pulses normal. Respiratory: No respiratory distress. Breath sounds normal. Abdomen: Soft and nontender. Skin: Skin warm and dry. Normal skin color. Normal skin turgor. Extremities: No lower extremity edema. No calf ttp Neuro: Oriented X 3. No motor deficit. No sensory deficit. Course Course Course Narrative: This is an RME: Additional HPI, ROS, PE not included below will be deferred to primary provider. 78 yo f hx anovaginal fistula presents w/ bright red blood per rectum and diarrhea coted in mucus and blood X few days. Not on thinners. Told once she may have IBS and IBD. Not followed by GI Labs, obs Medications Administered Discontinued Medications Generic Name Dose Route Start Last Admin Trade Name Freq PRN Reason Stop Dose Admin Sodium Chloride 1,000 mls @ 999 mls/hr 12/14/23 21:45 12/14/23 23:33 Ns IV 12/14/23 22:45 Infused .Q1H1M JANETH Infusion Iohexol 100 ml 12/14/23 22:34 12/14/23 22:34 Iohexol 350 Mg/Ml 100 Ml Infus..Btl IV 12/14/23 22:35 85 ml ONCE ONE Administration Medical Decision Making Medical Decision Making [facility] Narrative: 78 yo female with PMH of HTN and rectovaginal fistula s/p repair several years ago, normal colonoscopy 15 years ago here with mild abdominal pain diarrhea and at the end some mucousy bloody component she denies travel or abx use her abdominal exam is benign no fevers. She did eat beets. At this time labs, CT scan for colitis vs enteritis. Could also be due to the beets. Differential Diagnosis Differential Diagnoses: The differential diagnosis associated with the presentation includes colitis, diverticulitis, enteritis Admission/Observation Consideration of admission/observation: Escalation of care including admission/observation considered not toxic, no bleeding here stable for DC, tolerating PO Lab Data [facility] Lab Attestation statement: I reviewed the patient's lab results. 12/14/23 15:54 12/14/23 15:54 Labs: Lab Results 12/14/23 Range/Units 15:54 WBC 7.1 (4.8-10.8) X10*3/uL RBC 4.98 (4.20-5.50) X10*6/uL Hgb 14.1 (12.0-16.0) g/dl Hct 42.1 (37.0-47.0) % MCV 84.5 (80.0-98.0) fL MCH 28.3 (27.0-33.0) pg MCHC 33.5 (31.0-35.0) g/dl RDW 12.6 (11.0-16.0) % Plt Count 101 L D (160-400) X10*3/uL MPV 11.0 (9.4-12.3) fL Immature Gran % (Auto) 0.3 (0.0-0.4) % Neut % (Auto) 63.3 (45-73) % Lymph % (Auto) 18.6 L (20-40) % [place] % (Auto) 15.0 H (2-11) % Eos % (Auto) 2.7 (0-4) % Baso % (Auto) 0.1 (0-2) % Lymph # (Auto) 1.3 (1.2-4.9) X10*3/uL [place] # (Auto) 1.1 (0.1-1.2) X10*3/uL Eos # (Auto) 0.2 (0.0-0.4) X10*3/uL Baso # (Auto) 0.0 (0.0-0.2) X10*3/uL Abs Immat Gran (auto) 0.02 (0.00-0.03) X10*3/uL Absolute Neuts (auto) 4.5 (2.0-8.3) x10*3/uL Absolute Nucleated RBC 0.000 (0.0-0.012) X10*3/uL Nucleated RBC % (auto) 0.0 (0.0-0.2) /100WBC Sodium 141 (135-145) mmol/L Potassium 3.6 (3.3-5.1) mmol/L Chloride 103 (96-108) mmol/L Carbon Dioxide 26 (22-29) mmol/L Anion Gap 16 (12-20) BUN 18 H (9-16) mg/dL Creatinine 1.16 (0.5-1.4) mg/dL Estim Creat Clear Calc 45.1 Estimated GFR 45 Random Glucose 110 (60-115) mg/dL Calcium 9.5 (8.4-10.2) mg/dL Magnesium 1.9 (1.6-2.6) mg/dL Total Bilirubin 1.4 H (0.0-1.0) mg/dL AST 18 (5-31) U/L ALT 16 (0-31) U/L Alkaline Phosphatase 81 (39-117) U/L Total Protein 7.2 (6.5-8.0) g/dL Albumin 4.0 (3.5-5.0) g/dL Independent Interpretation I performed an independent interpretation of an: CT Scan (diverticulitis) Radiology Impression Discussion of test interpretation with radiology: I have reviewed the radiologist's reading. External Record Review External record reviewed: Inpatient record Prescription Management I considered prescription management with: Antibiotic and Other Discharge Plan Discharge Clinical Impression: Diverticulitis Patient Disposition: Home, Self-Care Instructions: Diverticulitis (ED), Diverticulitis Diet (ED) Additional Instructions: platelets are low at 101 recheck with doctor on monday avoid aspirin products return for worsening pain, fevers, increase of bloody stools or blood clots in stool stay hydrated, return for worsening diarrhea or more than 8 stools while on augmentin Prescriptions: New amoxicillin-pot clavulanate 875-125 mg tablet 1 tab PO BID Qty: 13 0RF No Action losartan 50 mg tablet 1 tab PO DAILY latanoprost 0.005 % drops 1 drp ophthalmic (eye) DAILY atorvastatin 40 mg tablet 1 tab PO DAILY metoprolol tartrate 100 mg tablet 1 tab PO BID hydrochlorothiazide 50 mg tablet 1 tab PO DAILY amlodipine 10 mg tablet 1 tab PO DAILY cholecalciferol (vitamin D3) [Vitamin D3] 50 mcg (2,000 unit) Tablet 50 mcg PO DAILY cefuroxime axetil 500 mg tablet 500 mg PO BID 10 Days Qty: 20 0RF metronidazole [Flagyl] 500 mg tablet 500 mg PO TID Qty: 30 0RF
[2023-12-14 16:00] LABS: MANUAL DIFF FLAG NO
[2023-12-14 16:04] LABS: Basophils Percent Auto 0.1 % (0-2); Eosinophils Absolute Auto 0.2 X10*3/uL (0.0-0.4); Eosinophils Percent Auto 2.7 % (0-4); Hematocrit 42.1 % (37.0-47.0); Hemoglobin 14.1 g/dl (12.0-16.0); Imm Gran Abs Auto 0.02 X10*3/uL (0.00-0.03); Imm Gran Pct Auto 0.3 % (0.0-0.4); Lymphocytes Absolute Auto 1.3 X10*3/uL (1.2-4.9); Lymphocytes Percent Auto 18.6 % (20-40); Mean Corpuscular HGB Conc 33.5 g/dl (31.0-35.0); Mean Corpuscular Hemoglobin 28.3 pg (27.0-33.0); Mean Corpuscular Volume 84.5 fL (80.0-98.0); Monocytes Absolute Auto 1.1 X10*3/uL (0.1-1.2); Neutrophils Absolute Auto 4.5 x10*3/uL (2.0-8.3); Neutrophils Percent Auto 63.3 % (45-73); Platelet Count 101 X10*3/uL (160-400); Red Blood Count 4.98 X10*6/uL (4.20-5.50); Red Cell Distribution Width 12.6 % (11.0-16.0); White Blood Count 7.1 X10*3/uL (4.8-10.8)
[2023-12-14 16:15] LABS: Alanine Aminotransferase 16 U/L (0-31); Alkaline Phosphatase 81 U/L (39-117); Anion Gap 16 (12-20); Aspartate Amino Transferase 18 U/L (5-31); Bilirubin Total 1.4 mg/dL (0.0-1.0); Blood Urea Nitrogen 18 mg/dL (9-16); Calcium 9.5 mg/dL (8.4-10.2); Carbon Dioxide 26 mmol/L (22-29); Chloride 103 mmol/L (96-108); Creatinine Clr Calc Pharmacy 45.1; Estimated Glomerular Filt Rate 45; Glucose Random 110 mg/dL (60-115); Magnesium 1.9 mg/dL (1.6-2.6); Potassium 3.6 mmol/L (3.3-5.1); Sodium 141 mmol/L (135-145); Total Protein 7.2 g/dL (6.5-8.0)
[2023-12-14 19:22] VITALS: BP 158/56; PULSE 68; RESP 16; TEMP 36.6; O2SAT 96
[2023-12-14 20:44] VITALS: BP 147/69; PULSE 69; RESP 16; TEMP 36.4; O2SAT 95
[2023-12-14] MEDS: 0.9 % Sodium Chloride 1,000 ML 999 ML IV (22:06)
[2023-12-14] MEDS: iohexoL 350 MG/ML 100 ML INFUS..BTL IV (22:34)
[2023-12-14 22:45] VITALS: BP 138/50; PULSE 75; RESP 14; TEMP 36.6; O2SAT 93
[2023-12-15] MEDS: Amoxicillin/Potassium Clav 875 MG TABLET PO (00:53)
[2023-12-15 00:57] VITALS: BP 128/71; PULSE 74; RESP 16; TEMP 36.7; O2SAT 99
== END 2023-12-15 01:06 | disposition home or self-care (01) ==
PROVIDERS: Physician Assistant; Emergency Provider Emergency Medicine; PCP Internal Medicine
DX: K57.32 Diverticulitis of large intestine without perforation or abscess without bleeding (principal); K92.1 Melena; R19.7 Diarrhea, unspecified; Z79.899 Other long term (current) drug therapy
CPT/HCPCS: 36415; 74177; 80053; 83735; 85025; 96360; 99284; Q9967

== ENCOUNTER 2023-12-19 11:22 | Outpatient (REF) | payer MEDICARE, SELFPAY ==
[2023-12-19 13:24] LABS: MANUAL DIFF FLAG NO
[2023-12-19 13:46] LABS: Basophils Percent Auto 0.2 % (0-2); Eosinophils Absolute Auto 0.3 X10*3/uL (0.0-0.4); Eosinophils Percent Auto 3.2 % (0-4); Hematocrit 41.7 % (37.0-47.0); Imm Gran Abs Auto 0.03 X10*3/uL (0.00-0.03); Imm Gran Pct Auto 0.3 % (0.0-0.4); Lymphocytes Absolute Auto 1.2 X10*3/uL (1.2-4.9); Lymphocytes Percent Auto 13.4 % (20-40); Mean Corpuscular HGB Conc 33.6 g/dl (31.0-35.0); Mean Corpuscular Hemoglobin 28.6 pg (27.0-33.0); Mean Corpuscular Volume 85.1 fL (80.0-98.0); Mean Platelet Volume 12.2 fL (9.4-12.3); Monocytes Absolute Auto 0.8 X10*3/uL (0.1-1.2); Monocytes Percent Auto 8.4 % (2-11); Neutrophils Absolute Auto 6.8 x10*3/uL (2.0-8.3); Neutrophils Percent Auto 74.5 % (45-73); Platelet Count 177 X10*3/uL (160-400); Red Cell Distribution Width 12.4 % (11.0-16.0); White Blood Count 9.1 X10*3/uL (4.8-10.8)
[2023-12-19 14:10] LABS: Anion Gap 13 (12-20); Blood Urea Nitrogen 10 mg/dL (9-16); Calcium 9.3 mg/dL (8.4-10.2); Carbon Dioxide 27 mmol/L (22-29); Chloride 100 mmol/L (96-108); Estimated Glomerular Filt Rate 39; Glucose Random 136 mg/dL (60-115); Potassium 3.3 mmol/L (3.3-5.1); Sodium 137 mmol/L (135-145)
== END 2023-12-19 11:23 | disposition home or self-care (01) ==
LOC: HO.10HDL 11:22
PROVIDERS: Visit Provider Internal Medicine
DX: R19.7 Diarrhea, unspecified (principal)
CPT/HCPCS: 36415; 80048; 85025

== ENCOUNTER 2024-01-03 14:15 | Outpatient (AMB) | payer MEDICARE, SELFPAY ==
--- NOTE | 2024-01-03 14:22 | HO.NEPHOV ---
Vital Signs 01/03/24 14:24 Height 5 ft 3 in Weight 196 lb 2 oz BMI 34.7 BP 140/62 H Blood Pressure Location Lt brachial Position Sitting Pulse 67 Pulse Source Pulse Oximeter Pulse Oximetry (%) 96 Oxygen Delivery Method Room Air Intake Visit Reasons: [employer] LE[employer]ER: Chronic Renal Insufficiency/Confirmed Rn Angiography Required: No Accompanied by: Self / Same As Patient Allergies No Known Allergies Allergy (Verified 01/03/24 14:26) HPI Comments Details: I had the privilege of seeing Shelby in consultation for her chronic kidney disease and hypertension. Her blood pressure medications have been steadily going over time. She has dyslipidemia and is on statins. She denies any known history coronary artery disease, carotid stenosis, congestive heart failure, CVA, peripheral arterial disease or renal artery stenosis. She does not have any orthostatic symptoms, nausea, vomiting, diarrhea, chest pain, pedal edema, paroxysmal nocturnal dyspnea, orthopnea or urinary symptoms. She denies having any bone or back pain. She denies having epistaxis, hearing loss, photosensitivity, froth or foam in the urine, pedal edema, skin rashes, history of excessive nonsteroidal anti-inflammatory intake. She claims to be compliant with her medications. She denied any active new systemic complaints at the time of this office visit [facility] Medical History (Updated 01/31/24 @ 22:07 by Nate Camejo MD) Glaucoma High cholesterol HTN (hypertension) S/p breast implant removal Vaginal fistula Tonsillectomy planned Aplasia of uterus Surgical History (Updated 01/03/24 @ 14:30 by Alison Burnette MA) History of cataract surgery History of left knee replacement History of tonsillectomy and adenoidectomy Family History (Updated 01/03/24 @ 14:31 by Alison Burnette MA) Father Hypertension Mother Lung cancer Social History Household Members: None Housing: House Do you presently have visiting nurse or other home services: No Alcohol intake: never service: No Current occupational status: retired Physical Exam Vital Signs: Last Vital Signs Pulse 67 01/03/24 14:24 BP 140/62 H 01/03/24 14:24 Pulse Ox 96 01/03/24 14:24 Oxygen Delivery Method Room Air 01/03/24 14:24 BMI result Body Mass Index 34.7 Const General: comfortable and no acute distress Orientation/consciousness: patient oriented x3 HEENT Head: Yes normocephalic Mouth: Normal oral and palatal mucosa present Eyes EOM: EOMs intact bilaterally Neck Neck: Yes supple Resp Auscultation: clear to auscultation bilaterally Cardio Jugular venous distension: no JVD Rate: regular rate GI Palpation (GI): Soft to palpation Auscultation: normal bowel sounds General: Yes no CVA tenderness Back/Spine/Pelvis Back: no CVA tenderness Skin General skin exam: no rashes or lesions noted Neuro General: patient oriented x3 and moves all extremities Extrem General: Yes no pedal edema Results Reviewed Nephrology Results: Hgb 14.0 g/dl (12.0-16.0) 12/19/23 WBC 9.1 X10*3/uL (4.8-10.8) 12/19/23 Plt Count 177 X10*3/uL (160-400) 12/19/23 Sodium 137 mmol/L (135-145) 12/19/23 Potassium 3.3 mmol/L (3.3-5.1) 12/19/23 Chloride 100 mmol/L (96-108) 12/19/23 Carbon Dioxide 27 mmol/L (22-29) 12/19/23 BUN 10 mg/dL (9-16) 12/19/23 Creatinine 1.31 mg/dL (0.5-1.4) 12/19/23 Calcium 9.3 mg/dL (8.4-10.2) 12/19/23 Assessment & Plan Assessment & Plan (1) CKD (chronic kidney disease) stage 3, GFR 30-59 ml/min: Code(s): N18.30 - Chronic kidney disease, stage 3 unspecified Category: Medical Qualifiers: Chronic kidney disease stage 3 subtype: stage 3a (GFR 45-59) Qualified Code(s): N18.31 - Chronic kidney disease, stage 3a (2) HTN (hypertension): Code(s): I10 - Essential (primary) hypertension Category: Medical Qualifiers: Hypertension type: primary hypertension Qualified Code(s): I10 - Essential (primary) hypertension Plan Shelby has chronic kidney disease for some time. Her serum creatinine is marginally worse now. She is known to have hypertension and is on 4 medications to keep her blood pressure at goal. She denies any vascular disease. She may be having renovascular disease causing her hypertension as well as CKD. I have ordered extensive workup. She is tolerating angiotensin receptor osmar. Her serum potassium is normal. Her urine output is good. She avoids nonsteroidal anti-inflammatories and maintain good hydration. I did not make any medication changes during this office visit. Further management is pending evolving data. Time spent retrieving data, patient encounter and documentation 53 minutes. Follow-up appointment given. Orders: Orders Protein Creatinine Ratio, Ur 01/03/24 N18.30 - Chronic kidney disease, stage 3 unspecified UA and rflx microscopic 01/03/24 N18.30 - Chronic kidney disease, stage 3 unspecified Electrolytes 01/03/24 N18.30 - Chronic kidney disease, stage 3 unspecified Calcium 01/03/24 N18.30 - Chronic kidney disease, stage 3 unspecified ANCA Vasculitides 01/03/24 N18.30 - Chronic kidney disease, stage 3 unspecified US renal BI 01/03/24 N18.30 - Chronic kidney disease, stage 3 unspecified US renal doppler 01/03/24 N18.30 - Chronic kidney disease, stage 3 unspecified Creatinine 01/03/24 N18.30 - Chronic kidney disease, stage 3 unspecified Blood Urea Nitrogen 01/03/24 N18.30 - Chronic kidney disease, stage 3 unspecified Parathyroid Hormone Intact 01/03/24 N18.30 - Chronic kidney disease, stage 3 unspecified Immunofixation Pnl, Serum 01/03/24 N18.30 - Chronic kidney disease, stage 3 unspecified Vitamin D 25-OH Total 01/03/24 N18.30 - Chronic kidney disease, stage 3 unspecified Coding Level of Care Code New Pt Level 4 (85514) Diagnoses Stage 3a chronic kidney disease N18.31 Chronic kidney disease stage 3 subtype: stage 3a (GFR 45-59) Primary hypertension I10 Hypertension type: primary hypertension
[2024-01-03 14:24] VITALS: BP 140/62; PULSE 67; O2SAT 96; BMI 34.7
== END 2024-01-03 15:17 | disposition home or self-care (01) ==
PROVIDERS: PCP Internal Medicine; Referring Provider Internal Medicine; Visit Provider Internal Medicine Nephrology
DX: N18.31 Chronic kidney disease, stage 3a (principal); I10 Essential (primary) hypertension
CPT/HCPCS: 99204

== ENCOUNTER → 2024-01-03 14:15 | Outpatient (BNVA) | payer MEDICARE, SELFPAY | PROVIDERS: PCP Internal Medicine; Referring Provider Internal Medicine; Visit Provider Internal Medicine Nephrology | DX: I12.9 Hypertensive chronic kidney disease with stage 1 through stage 4 chronic kidney disease, or unspecified chronic kidney disease (principal); N18.31 Chronic kidney disease, stage 3a | CPT/HCPCS: 99202 ==

== ENCOUNTER 2024-02-21 07:28 | Outpatient (REF) | payer MEDICARE, SELFPAY ==
--- NOTE | ~2024-02-21 | US_ITS ---
EXAMINATION: US RETROPERITONEAL LIMITED (RENAL ONLY) CLINICAL INFORMATION: Chronic kidney disease stage III. COMPARISON: CT scan dated December 14, 2023. TECHNIQUE: Real-time ultrasound examination of the kidneys and urinary bladder was performed including duplex Doppler evaluation of the renal arteries, bilaterally. FINDINGS: The visualized portion of the abdominal aorta appears unremarkable. Peak systolic velocity in the abdominal aorta measures 126 cm/sec. RIGHT KIDNEY: 9.8 x 4.1 x 3.5 cm (SAG x AP x TRV). 2.5 x 2.3 x 2.0 cm benign right mid to upper pole simple renal cyst for which no further dedicated follow up imaging is indicated. The kidney otherwise appears unremarkable in size, contour, and echogenicity. Renal cortical thickness appears unremarkable. No calculi or focal parenchymal lesion identified. No hydronephrosis. No fluid is seen in Morison's pouch. Peak systolic velocity in the main right renal artery measure 94 cm/sec. Waveforms in the main renal artery and intrarenal waveforms appear unremarkable, without evidence of parvus tardus. Flow is seen within the right renal vein. LEFT KIDNEY: 10.4 x 4.8 x 4.4 cm (SAG x AP x TRV). 1.1 cm or less benign left mid simple renal cysts for which no further dedicated follow up imaging is indicated. The kidney otherwise appears unremarkable in size, contour, and echogenicity. Renal cortical thickness appears unremarkable. No calculi or focal parenchymal lesion identified. No hydronephrosis. Peak systolic velocity in the main left renal artery measure 115 cm/sec. Waveforms in the main renal artery and intrarenal waveforms appear unremarkable, without evidence of parvus tardus. Flow is seen within the left renal vein. US/US renal doppler IMPRESSION: No sonographic evidence of renal artery stenosis.
--- NOTE | ~2024-02-21 | US_ITS ---
EXAMINATION: US RETROPERITONEAL LIMITED (RENAL ONLY) CLINICAL INFORMATION: Chronic kidney disease stage III. COMPARISON: CT scan dated December 14, 2023. TECHNIQUE: Real-time ultrasound examination of the kidneys and urinary bladder was performed including duplex Doppler evaluation of the renal arteries, bilaterally. FINDINGS: The visualized portion of the abdominal aorta appears unremarkable. Peak systolic velocity in the abdominal aorta measures 126 cm/sec. RIGHT KIDNEY: 9.8 x 4.1 x 3.5 cm (SAG x AP x TRV). 2.5 x 2.3 x 2.0 cm benign right mid to upper pole simple renal cyst for which no further dedicated follow up imaging is indicated. The kidney otherwise appears unremarkable in size, contour, and echogenicity. Renal cortical thickness appears unremarkable. No calculi or focal parenchymal lesion identified. No hydronephrosis. No fluid is seen in Morison's pouch. Peak systolic velocity in the main right renal artery measure 94 cm/sec. Waveforms in the main renal artery and intrarenal waveforms appear unremarkable, without evidence of parvus tardus. Flow is seen within the right renal vein. LEFT KIDNEY: 10.4 x 4.8 x 4.4 cm (SAG x AP x TRV). 1.1 cm or less benign left mid simple renal cysts for which no further dedicated follow up imaging is indicated. The kidney otherwise appears unremarkable in size, contour, and echogenicity. Renal cortical thickness appears unremarkable. No calculi or focal parenchymal lesion identified. No hydronephrosis. Peak systolic velocity in the main left renal artery measure 115 cm/sec. Waveforms in the main renal artery and intrarenal waveforms appear unremarkable, without evidence of parvus tardus. Flow is seen within the left renal vein. US/US renal BI IMPRESSION: No sonographic evidence of renal artery stenosis.
== END 2024-02-21 07:29 | disposition home or self-care (01) ==
LOC: HO.US 07:28
PROVIDERS: PCP Internal Medicine; Visit Provider Internal Medicine Nephrology
DX: N18.30 Chronic kidney disease, stage 3 unspecified (principal)
CPT/HCPCS: 76775; 93975

== ENCOUNTER 2024-04-01 10:10 | Outpatient (REF) | payer MEDICARE, SELFPAY ==
[2024-04-01 11:08] LABS: Appearance Urine Clear; Color Urine Yellow; Glucose Urine UA Negative (Negative); Leukocyte Esterase Urine Negative (Negative); Nitrite Urine Negative (Negative); Urine Blood Negative (Negative); Urine Ketones Negative (Negative); Urine Protein Negative (Neg-Trace)
[2024-04-01 11:20] LABS: Parathyroid Hormone Intact 95.8 pg/mL (8.7-77.1)
[2024-04-01 11:23] LABS: Anion Gap 15 (12-20); Blood Urea Nitrogen 17 mg/dL (9-16); Calcium 9.8 mg/dL (8.4-10.2); Carbon Dioxide 25 mmol/L (22-29); Chloride 100 mmol/L (96-108); Estimated Glomerular Filt Rate 44; Potassium 3.6 mmol/L (3.3-5.1); Sodium 136 mmol/L (135-145)
[2024-04-01 11:33] LABS: Vitamin D 25-OH Total 34.4 ng/mL (>30)
[2024-04-01 16:22] LABS: Creatinine Urine 107.38 mg/dL; Total Protein Urine Random < 7 mg/dL (<12)
[2024-04-03 14:03] LABS: Myeloperoxidase Antibody <1.0 AI; Proteinase 3 PR3 Antibodies <1.0 AI
[2024-04-03 18:18] LABS: IgA 210 mg/dL (70-320); IgG 1211 mg/dL (600-1540); IgM 78 mg/dL (50-300)
== END 2024-04-01 10:11 | disposition home or self-care (01) ==
LOC: HO.LAB 10:10
PROVIDERS: PCP Internal Medicine; Visit Provider Internal Medicine Nephrology
DX: N18.30 Chronic kidney disease, stage 3 unspecified (principal)
CPT/HCPCS: 36415; 80051; 81003; 82306; 82310; 82565; 82570; 82784; 83970; 84156; 84520; 86021; 86334

== ENCOUNTER 2024-04-17 11:23 | Outpatient (AMB) | payer MEDICARE, SELFPAY ==
[2024-04-17 12:07] VITALS: BP 126/72; PULSE 65; O2SAT 94; BMI 35.1
--- NOTE | 2024-04-17 12:07 | HO.NEPHOV ---
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 Her blood pressure medications have been steadily going over time. She has dyslipidemia and is on statins. She denies any known history coronary artery disease, carotid stenosis, congestive heart failure, CVA, peripheral arterial disease or renal artery stenosis. She does not have any orthostatic symptoms, nausea, vomiting, diarrhea, chest pain, pedal edema, paroxysmal nocturnal dyspnea, orthopnea or urinary symptoms. She denies having any bone or back pain. She denies having epistaxis, hearing loss, photosensitivity, froth or foam in the urine, pedal edema, skin rashes, history of excessive nonsteroidal anti-inflammatory intake. She claims to be compliant with her medications. She denied any active new systemic complaints at the time of this office visit COUNTS INCLUDE 234 BEDS AT THE [facility] Medical History (Updated 01/31/24 @ 22:07 by Nate Camejo MD) Glaucoma High cholesterol HTN (hypertension) S/p breast implant removal Vaginal fistula Tonsillectomy planned Aplasia of uterus Surgical History History of cataract surgery History of left knee replacement History of tonsillectomy and adenoidectomy Family History Father Hypertension Mother Lung cancer Social History Household Members: None Housing: House Do you presently have visiting nurse or other home services: No Alcohol intake: never service: No Current occupational status: retired Physical Exam Vital Signs: Last Vital Signs Pulse 65 04/17/24 12:07 BP 126/72 04/17/24 12:07 Pulse Ox 94 04/17/24 12:07 Oxygen Delivery Method Room Air 04/17/24 12:07 BMI result Body Mass Index 35.1 Const General: comfortable and no acute distress Orientation/consciousness: patient oriented x3 HEENT Head: Yes normocephalic Mouth: Normal oral and palatal mucosa present Eyes EOM: EOMs intact bilaterally Neck Neck: Yes supple Resp Auscultation: clear to auscultation bilaterally Cardio Jugular venous distension: no JVD Rate: regular rate GI Palpation (GI): Soft to palpation Auscultation: normal bowel sounds General: Yes no CVA tenderness Back/Spine/Pelvis Back: no CVA tenderness Skin General skin exam: no rashes or lesions noted Neuro General: patient oriented x3 and moves all extremities Extrem General: Yes no pedal edema Results Reviewed Nephrology Results: Hgb 14.0 g/dl (12.0-16.0) 12/19/23 WBC 9.1 X10*3/uL (4.8-10.8) 12/19/23 Plt Count 177 X10*3/uL (160-400) 12/19/23 Sodium 136 mmol/L (135-145) 04/01/24 Potassium 3.6 mmol/L (3.3-5.1) 04/01/24 Chloride 100 mmol/L (96-108) 04/01/24 Carbon Dioxide 25 mmol/L (22-29) 04/01/24 BUN 17 mg/dL (9-16) H 04/01/24 Creatinine 1.20 mg/dL (0.5-1.4) 04/01/24 Calcium 9.8 mg/dL (8.4-10.2) 04/01/24 PTH Intact 95.8 pg/mL (8.7-77.1) H 04/01/24 Urine Protein Negative mg/dL (Neg-Trace) 04/01/24 Urine Creatinine 107.38 mg/dL 04/01/24 Protein/Creatinin Ratio TNP 04/01/24 Renal US 02/21/24 Assessment & Plan Assessment & Plan (1) CKD (chronic kidney disease) stage 3, GFR 30-59 ml/min: Code(s): N18.30 - Chronic kidney disease, stage 3 unspecified Category: Medical Qualifiers: Chronic kidney disease stage 3 subtype: stage 3a (GFR 45-59) Qualified Code(s): N18.31 - Chronic kidney disease, stage 3a (2) HTN (hypertension): Code(s): I10 - Essential (primary) hypertension Category: Medical Qualifiers: Hypertension type: primary hypertension Qualified Code(s): I10 - Essential (primary) hypertension Plan Shelby has chronic kidney disease for some time. Her serum creatinine is better now. She is known to have hypertension and is on 4 medications to keep her blood pressure at goal. She denies any vascular disease. There is no renovascular disease causing her hypertension as well as CKD. She is tolerating angiotensin receptor osmar. Her serum potassium is normal. Her urine output is good. She avoids nonsteroidal anti-inflammatories and maintain good hydration. I did not make any medication changes during this office visit. Further management is pending evolving data. Follow-up appointment given. Orders: Orders Creatinine Today I10 - Essential (primary) hypertension, N18.31 - Chronic kidney disease, stage 3a Blood Urea Nitrogen Today I10 - Essential (primary) hypertension, N18.31 - Chronic kidney disease, stage 3a Electrolytes Today I10 - Essential (primary) hypertension, N18.31 - Chronic kidney disease, stage 3a Coding Level of Care Code Est Pt Level 4 (48518) Diagnoses Stage 3a chronic kidney disease N18.31 Chronic kidney disease stage 3 subtype: stage 3a (GFR 45-59) Primary hypertension I10 Hypertension type: primary hypertension
== END 2024-04-17 12:25 | disposition home or self-care (01) ==
PROVIDERS: PCP Internal Medicine; Visit Provider Internal Medicine Nephrology
DX: N18.31 Chronic kidney disease, stage 3a (principal); I10 Essential (primary) hypertension
CPT/HCPCS: 99214

== ENCOUNTER → 2024-04-17 11:23 | Outpatient (BNVA) | payer MEDICARE, SELFPAY | PROVIDERS: PCP Internal Medicine; Visit Provider Internal Medicine Nephrology | DX: I12.9 Hypertensive chronic kidney disease with stage 1 through stage 4 chronic kidney disease, or unspecified chronic kidney disease (principal); N18.31 Chronic kidney disease, stage 3a; Z79.899 Other long term (current) drug therapy | CPT/HCPCS: 99212 ==

== ENCOUNTER 2024-07-11 11:10 | Outpatient (AMB) | payer MEDICARE, SELFPAY ==
[2024-07-11 11:25] VITALS: BP 150/76; PULSE 62; O2SAT 97; BMI 35.5
--- NOTE | 2024-07-11 11:25 | A.OFFVIS_ITS ---
Vital Signs 07/11/24 11:25 Height 5 ft 3 in Weight 200 lb 2.876 oz BMI 35.5 BP 150/76 H Blood Pressure Location Rt radial Position Sitting Pulse 62 Pulse Source Pulse Oximeter Pulse Oximetry (%) 97 Oxygen Delivery Method Room Air Intake Visit Reasons: [place] scrn Intake Note: Shelby presents in office today for a scheduled colo consult. CC; Pt has previous GI hx. Pt reports that her last colo was performed ~11 years ago. Pt reports that everything appeared normal with the exception of internal hemorrhoids. Pt denies any known hx of polyps per colos to this point. Pt does have hx of diverticulosis. 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 female with past medical history of colitis, diverticulitis, hypertension, CKD, arthroplasty of left knee, right knee arthritis is here today for pre colonoscopy screening.? Patient was sent to us by her PCP.? ? Patient admitted few years ago with abdominal pain and diagnosed with colitis. Few months ago patient was seen in the ER for abdominal pain in the left lower quadrant and was diagnosed with diverticulitis. Patient was sent home with antibiotics. Patient admits that she is having trouble moving her bowels. She moves her bowels almost daily, however does not feel like she empties them completely. Pain in the left lower quadrant when she has a bowel movement occasionally.? Denies any personal or family history of gastrointestinal disease, colon polyps, or CRC.? Denies history of difficulty with sedation or anesthesia in the past.? Negative for history of sleep apnea.? Denies any history of cardiac, pulmonary, or hepatic disease.?? No history of infectious? diseases like hepatitis A, B, C, HIV or tuberculosis.? Patient is not on any anticoagulation [facility] Medical History (Updated 07/11/24 @ 12:17 by Dia Burnett MANAGEMENT ASSOCIATE-) History of colitis History of diverticulitis of colon Glaucoma High cholesterol HTN (hypertension) S/p breast implant removal Vaginal fistula Tonsillectomy planned Aplasia of uterus Surgical History History of cataract surgery History of left knee replacement History of tonsillectomy and adenoidectomy Family History Father Hypertension Mother Lung cancer Social History Household Members: None Housing: House Do you presently have visiting nurse or other home services: No Alcohol intake: never service: No Current occupational status: retired Review of Systems Const Denies weight gain and Denies weight loss ENT Reports no additional complaints, Denies dysphagia and Denies odynophagia Card Reports no additional complaints Resp Reports no additional complaints GI Reports abdominal pain (LLQ), Denies belching, Denies melena, Denies bloating, Denies change in bowel habits, Reports constipation, Denies dysphagia, Denies excessive flatus, Denies dyspepsia, Denies heartburn, Denies diarrhea, Denies loose stools, Denies nausea, Denies odynophagia and Denies vomiting Reports no additional complaints Musc Reports no additional complaints Neuro Reports no additional complaints Psych Reports no additional complaints Endo Reports no additional complaints Physical Exam Vital Signs: Last Vital Signs Pulse 62 07/11/24 11:25 BP 150/76 H 07/11/24 11:25 Pulse Ox 97 07/11/24 11:25 Oxygen Delivery Method Room Air 07/11/24 11:25 BMI result Body Mass Index 35.5 Const Other: Patient ambulating with cane General: healthy appearing and no acute distress Nutritional Appearance: obese Orientation/consciousness: patient oriented x3 Resp Effort & Inspection: normal respiratory effort, able to speak in complete sentences, no tracheal deviation and symmetric chest movement Auscultation: clear to auscultation bilaterally Cardio Rate: regular rate GI Inspection: Yes normal to inspection and No distended Palpation (GI): Soft to palpation, not firm, nontender and No hepatosplenomegaly present Auscultation: normal bowel sounds General: Yes no CVA tenderness Back/Spine/Pelvis Back: no CVA tenderness Skin General skin exam: elasticity normal, turgor normal and dry skin Neuro General: patient oriented x3 Psych Appearance: grossly normal Mental Status: mental status grossly normal Assessment & Plan Assessment & Plan (1) History of diverticulitis of colon: Code(s): Z87.19 - Personal history of other diseases of the digestive system Category: Medical (2) History of colitis: Code(s): Z87.19 - Personal history of other diseases of the digestive system Category: Medical (3) Screen for colon cancer: Code(s): Z12.11 - Encounter for screening for malignant neoplasm of colon Plan History of diverticulitis and colitis in the past. Patient does not empty her bowels well. Increase fiber and add probiotic to her diet. Patient reports pain occasionally in left lower quadrant. Negative exam today. Will send Dulcolax and Colace for patient to help her move her bowels better. [id number] probiotics and fiber recommended. What to expect before during and after procedure discussed with patient. Stressed the importance of good bowel prep and clear liquid diet day before procedure. Patient denies any cardiac or respiratory symptoms. No issues with anesthesia in the past. No history of sleep apnea. Not on any anticoagulation medication. I will see patient after the procedure, sooner on as needed basis. Patient is agreeable to this plan and verbalizes understanding of instructions. She was given the opportunity to ask questions and all questions answered. Thank you for allowing me to participate in her care Medications: New bisacodyl (Dulcolax (bisacodyl)) 10 mg (2 x 5 mg) PO BEDTIME 180 tabs 4RF polyethylene glycol 3350 (Miralax) As directed by gastro[facility]ology department at [facility] 238 grams PO ONCE 238 grams 0RF Z12.11 - Encounter for screening for malignant neoplasm of colon Coding Level of Care Code New Pt Level 3 (56993) Diagnoses History of diverticulitis of colon Z87.19 History of colitis Z87.19 Screen for colon cancer Z12.11 Time Spent (min) 40 Comment 30 minutes spent with patient and additional 10 minutes spent reviewing her r ecords
== END 2024-07-11 12:22 | disposition home or self-care (01) ==
PROVIDERS: PCP Internal Medicine; Visit Provider Nurse Practitioner Family
DX: Z87.19 Personal history of other diseases of the digestive system (principal); Z12.11 Encounter for screening for malignant neoplasm of colon
CPT/HCPCS: 99203; 99213

== ENCOUNTER → 2024-07-11 11:10 | Outpatient (BNVA) | payer MEDICARE, SELFPAY | PROVIDERS: PCP Internal Medicine; Visit Provider Nurse Practitioner Family | DX: Z01.818 Encounter for other preprocedural examination (principal); R10.32 Left lower quadrant pain; Z87.19 Personal history of other diseases of the digestive system | CPT/HCPCS: 99202 ==

== ENCOUNTER 2024-10-04 10:04 | Outpatient (AMB) | payer MEDICARE, SELFPAY ==
[2024-10-04 10:29] VITALS: BP 124/64; PULSE 60; O2SAT 97; BMI 35.8
--- NOTE | 2024-10-04 10:29 | HO.NEPHOV ---
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 She denies any known history coronary artery disease, carotid stenosis, congestive heart failure, CVA, peripheral arterial disease or renal artery stenosis. She does not have any orthostatic symptoms, nausea, vomiting, diarrhea, chest pain, pedal edema, paroxysmal nocturnal dyspnea, orthopnea or urinary symptoms. She denies having any bone or back pain. She denies having epistaxis, hearing loss, photosensitivity, froth or foam in the urine, pedal edema, skin rashes, history of excessive nonsteroidal anti-inflammatory intake. She claims to be compliant with her medications. She denied any active new systemic complaints at the time of this office visit [facility] Medical History (Updated 07/11/24 @ 12:17 by Dia Burnett, [facility]) History of colitis History of diverticulitis of colon Glaucoma High cholesterol HTN (hypertension) S/p breast implant removal Vaginal fistula Tonsillectomy planned Aplasia of uterus Surgical History History of cataract surgery History of left knee replacement History of tonsillectomy and adenoidectomy Family History Father Hypertension Mother Lung cancer Social History Household Members: None Housing: House Do you presently have visiting nurse or other home services: No Alcohol intake: never service: No Current occupational status: retired Review of Systems Const All systems reviewed & are unremarkable except as noted in HPI and below Physical Exam Vital Signs: Last Vital Signs Pulse 60 10/04/24 10:29 BP 124/64 10/04/24 10:29 Pulse Ox 97 10/04/24 10:29 Oxygen Delivery Method Room Air 10/04/24 10:29 BMI result Body Mass Index 35.8 Const General: comfortable and no acute distress Orientation/consciousness: patient oriented x3 HEENT Head: Yes normocephalic Mouth: Normal oral and palatal mucosa present Eyes EOM: EOMs intact bilaterally Neck Neck: Yes supple Resp Auscultation: clear to auscultation bilaterally Cardio Jugular venous distension: no JVD Rate: regular rate GI Palpation (GI): Soft to palpation Auscultation: normal bowel sounds General: Yes no CVA tenderness Back/Spine/Pelvis Back: no CVA tenderness Skin General skin exam: no rashes or lesions noted Neuro General: patient oriented x3 and moves all extremities Extrem General: Yes no pedal edema Results Reviewed Nephrology Results: Hgb 14.0 g/dl (12.0-16.0) 12/19/23 WBC 9.1 X10*3/uL (4.8-10.8) 12/19/23 Plt Count 177 X10*3/uL (160-400) 12/19/23 Sodium 136 mmol/L (135-145) 04/01/24 Potassium 3.6 mmol/L (3.3-5.1) 04/01/24 Chloride 100 mmol/L (96-108) 04/01/24 Carbon Dioxide 25 mmol/L (22-29) 04/01/24 BUN 17 mg/dL (9-16) H 04/01/24 Creatinine 1.20 mg/dL (0.5-1.4) 04/01/24 Calcium 9.8 mg/dL (8.4-10.2) 04/01/24 PTH Intact 95.8 pg/mL (8.7-77.1) H 04/01/24 Urine Protein Negative mg/dL (Neg-Trace) 04/01/24 Urine Creatinine 107.38 mg/dL 04/01/24 Protein/Creatinin Ratio TNP 04/01/24 Renal US 02/21/24 Assessment & Plan Assessment & Plan (1) HTN (hypertension): Code(s): I10 - Essential (primary) hypertension Category: Medical Qualifiers: Hypertension type: primary hypertension Qualified Code(s): I10 - Essential (primary) hypertension (2) CKD (chronic kidney disease) stage 3, GFR 30-59 ml/min: Code(s): N18.30 - Chronic kidney disease, stage 3 unspecified Category: Medical Qualifiers: Chronic kidney disease stage 3 subtype: stage 3a (GFR 45-59) Qualified Code(s): N18.31 - Chronic kidney disease, stage 3a Jody Ryan has chronic kidney disease for some time. Her serum creatinine is stable. She is known to have hypertension and her blood pressure is at goal. She denies any vascular disease. There is no renovascular disease causing her hypertension as well as CKD. She is tolerating angiotensin receptor osmar. Her serum potassium is normal. Her urine output is good. She avoids nonsteroidal anti-inflammatories and maintain good hydration. I did not make any medication changes during this office visit. I shall consider SGLT2 i with time. Orders: Orders Creatinine 6 Months I10 - Essential (primary) hypertension, N18.31 - Chronic kidney disease, stage 3a Electrolytes 6 Months I10 - Essential (primary) hypertension, N18.31 - Chronic kidney disease, stage 3a Protein Creatinine Ratio, Ur 6 Months I10 - Essential (primary) hypertension, N18.31 - Chronic kidney disease, stage 3a Blood Urea Nitrogen 6 Months I10 - Essential (primary) hypertension, N18.31 - Chronic kidney disease, stage 3a Hemoglobin A1c 6 Months I10 - Essential (primary) hypertension, N18.31 - Chronic kidney disease, stage 3a Coding Level of Care Code Est Pt Level 4 (95732) Diagnoses Primary hypertension I10 Hypertension type: primary hypertension Stage 3a chronic kidney disease N18.31 Chronic kidney disease stage 3 subtype: stage 3a (GFR 45-59)
== END 2024-10-04 10:50 | disposition home or self-care (01) ==
PROVIDERS: PCP Internal Medicine; Visit Provider Internal Medicine Nephrology
DX: I12.9 Hypertensive chronic kidney disease with stage 1 through stage 4 chronic kidney disease, or unspecified chronic kidney disease (principal); N18.31 Chronic kidney disease, stage 3a
CPT/HCPCS: 99214

== ENCOUNTER → 2024-10-04 10:04 | Outpatient (BNVA) | payer MEDICARE, SELFPAY | PROVIDERS: PCP Internal Medicine; Visit Provider Internal Medicine Nephrology | DX: I12.9 Hypertensive chronic kidney disease with stage 1 through stage 4 chronic kidney disease, or unspecified chronic kidney disease (principal); N18.31 Chronic kidney disease, stage 3a | CPT/HCPCS: 99212 ==

== ENCOUNTER 2024-11-13 09:26 | Day surgery (SDC) | payer MEDICARE, SELFPAY ==
[2024-11-11 16:42] VITALS: BMI 35.8
--- NOTE | 2024-11-12 09:17 | P.CONAN_ITS ---
HPI - Anesthesia Eval Consult details Narrative: 79yo F for Colonoscopy [facility] Active Problems Active Problems: All Active Problems History of colitis (Acute) History of diverticulitis of colon (Acute) HTN (hypertension) (Acute) CKD (chronic kidney disease) stage 3, GFR 30-59 ml/min (Acute) History of arthroplasty of left knee (Acute) Past Medical History Medical History (Updated 07/11/24 @ 12:17 by Dia Burnett CUT OUT AND MARKING MACHINE OPERATOR-) History of colitis History of diverticulitis of colon Glaucoma High cholesterol HTN (hypertension) S/p breast implant removal Vaginal fistula Tonsillectomy planned Aplasia of uterus Family History Family History Father Hypertension Mother Lung cancer Surgical History Surgical History History of cataract surgery History of left knee replacement History of tonsillectomy and adenoidectomy Social History Social History Household Members: None Housing: House Do you presently have visiting nurse or other home services: No Alcohol intake: never service: No Current occupational status: retired [employer] Allergies Allergy/AdvReac Type Severity Reaction Status Date / Time No Known Allergies Allergy Verified 10/04/24 10:31 Home Medications ?Medication ?Instructions ?Recorded ?Confirmed ?Last Taken ?Type amlodipine 10 mg tablet 1 tab PO DAILY 08/30/20 08/30/20 08/30/20 History latanoprost 0.005 % eye drops 1 drp ophthalmic (eye) DAILY 08/30/20 08/30/20 08/30/20 History losartan 50 mg tablet 1 tab PO DAILY 08/30/20 08/30/20 08/30/20 History metoprolol tartrate 100 mg tablet 1 tab PO BID 08/30/20 08/30/20 08/30/20 02:15 History cholecalciferol (vitamin D3) 50 50 mcg PO DAILY 09/01/20 09/01/20 Unknown History mcg (2,000 unit) tablet (Vitamin D3) atorvastatin 40 mg tablet 20 mg PO DAILY 01/03/24 Unknown History hydrochlorothiazide 25 mg tablet 25 mg PO DAILY 01/03/24 Unknown History Exam Height,Weight and Vital Signs: Height 5 ft 3 in Weight 91.626 kg Assessment and Plan Assessment Anesthesia Assessment: Chart Reviewed
[2024-11-13 09:39] VITALS: BP 141/69; PULSE 58; RESP 20; TEMP 36.4; O2SAT 98; BMI 35.9
[2024-11-13] MEDS: Lactated Ringers 1,000 ML 100 ML IVCONT (10:05)
--- NOTE | 2024-11-13 10:30 | HO.ANESPROP2 ---
[facility] Active Problems Active Problems: All Active Problems History of colitis (Acute) History of diverticulitis of colon (Acute) HTN (hypertension) (Acute) CKD (chronic kidney disease) stage 3, GFR 30-59 ml/min (Acute) History of arthroplasty of left knee (Acute) Past Medical History Medical History History of colitis History of diverticulitis of colon Glaucoma High cholesterol HTN (hypertension) S/p breast implant removal Vaginal fistula Tonsillectomy planned Aplasia of uterus Functional capacity: independent ambulation Patient : No Family History Family History Father Hypertension Mother Lung cancer Family history of problems with anesthesia: No Surgical History Surgical History History of cataract surgery History of left knee replacement History of tonsillectomy and adenoidectomy History of Problems with Anesthesia: No Social History Social History Household Members: None Housing: House Do you presently have visiting nurse or other home services: No Alcohol intake: never Advance Directives: No Advance Directives Information Provided: Yes service: No Current occupational status: retired [employer] Allergies Allergy/AdvReac Type Severity Reaction Status Date / Time No Known Allergies Allergy Verified 10/04/24 10:31 Active Medications: Current Medications Lactated Ringer's (Lr) 1,000 mls @ 100 mls/hr IVCONT .Q10H JANETH Last Admin: 11/13/24 10:05 Dose: 100 mls/hr Home Medications ?Medication ?Instructions ?Recorded ?Confirmed ?Last Taken ?Type amlodipine 10 mg tablet 1 tab PO DAILY 08/30/20 11/13/24 11/13/24 History latanoprost 0.005 % eye drops 1 drp ophthalmic (eye) DAILY 08/30/20 08/30/20 08/30/20 History losartan 50 mg tablet 1 tab PO DAILY 08/30/20 11/13/24 11/13/24 History metoprolol tartrate 100 mg tablet 1 tab PO BID 08/30/20 11/13/24 11/13/24 History cholecalciferol (vitamin D3) 50 50 mcg PO DAILY 09/01/20 11/13/24 11/13/24 History mcg (2,000 unit) tablet (Vitamin D3) atorvastatin 40 mg tablet 20 mg PO DAILY 01/03/24 11/13/24 11/13/24 History hydrochlorothiazide 25 mg tablet 25 mg PO DAILY 01/03/24 11/13/24 11/13/24 History Exam Height,Weight and Vital Signs: Height 5 ft 3 in Weight 91.9 kg Last Vital Signs Temp 97.6 F 11/13/24 09:39 Pulse 58 11/13/24 09:39 Resp 20 11/13/24 09:39 BP 141/69 H 11/13/24 09:39 Pulse Ox 98 11/13/24 09:39 O2 Del Method Room Air 11/13/24 09:39 Airway Mallampati Class: II TM Dist: >3cm Neck ROM: Full Heart: RRR Lungs: CTA Assessment and Plan Assessment Anesthesia Assessment: Anesthesia Plan Discussed and Chart Reviewed Final Anesthetic Review Family History of Problems with Anesthesia: No History of Problems with Anesthesia: No NPO: Yes ASA Class: II Final Preanesthetic Review: Meds/Allgs Chart Reviewed, Consent Obtained/Reviewed and Anes Risks/Benef Reviewed Patient Risk: Low Procedure Risk: Low Anesthetic Plan Anesthetic Plan: MAC: Disposition: Standard PACU
--- NOTE | 2024-11-13 10:32 | P.HPSUR_ITS ---
Pre-Procedural Eval Section A - 24 Hr Update-Section A only Date of Service: 11/13/24 Section B - Complete if H&P > 30 days Chief Complaint: Personal history of other diseases of the digestiv Relevant Family History (Specify if Yes): No Relevant Social History: None Present Medications: see Short Stay Collaborative assessment Medical History: Significant History ( History of colitis History of divertic ulitis of colon Glaucoma High cholesterol HTN (hypertension) S/p breast implant removal Vaginal fistula Tonsillectomy planned Aplasia of uterus) History of Previous Operations: Relevant previous surgery/procedure and date(s) (History of cataract surgery History of left knee replacement History of tonsillectomy and adenoidectomy) Allergies: Allergies Allergy/AdvReac Type Severity Reaction Status Date / Time No Known Allergies Allergy Verified 10/04/24 10:31 Review of Systems Sugical H&P ROS: Negative: Constitution, Cardiovascular, Respiratory, Neurological, Psychiatric, Hem-Onc, Allergic/Immunologic, Gastrointestinal, Genitourinary, Musculoskeletal, Integumentary, Endocrine and Eyes/Ears/Nose/Throat Exam Surgical H&P Exam: Normal: HEENT, Normal: Heart, Normal: Lungs, Normal: Extremities, Normal: Abdomen, Normal: Skin and Normal: Neurological Plan Diagnosis/Plan: Unchanged I have reviewed the history and physical and performed a pertinent physical examination on my patient. No changes have occurred unless specified. Time Spent With Patient Time: Total time managing care of this patient today ____ minutes.
--- OUTSIDE RECORDS SUMMARY | 2024-11-13 10:39 | XMS_ITS | Clinical Summary ---
Author Organization [facility] ity Address [address] [place] [address] Care Team Providers Care Pododermatologist Name Role Phone Unavailable Primary Care Provider Unavailabl e Social History Tobacco Use Types Packs/Day Years Used Date Smoking Tobacco: Never Assessed Comments Unknown Sex and Gender Information Value Date Recorded Sex Assigned at Not on file Legal Sex Female 3:40 PM EST Gender Identity Not on file Sexual Orientation Not on file Plan of Treatment Health Maintenance Due Date Last Done Comments DTaP,Tdap,and Td Vaccines (1 - Tdap) 1966 Pneumococcal Vaccine: 50+ Ye ars (1 of 1 - PCV) 1997 Zoster Vaccines (1 of 2) 1997 RSV Immunization Patients 60 + Years Old (1 - 1-dose 75+ series) 2022 COVID-19 Vaccine ( - 2023-2 5 season) 2024 Influenza Vaccine (#1) 2024 HIB Vaccines Aged Out No longer eligi ble based on patient's age to complete this topic HPV Vaccines Aged Out No longer eligi ble based on patient's age to complete this topic Hepatitis A Vaccines Aged Out No long er eligible based on patient's age to complete this topic Hepatitis B Vaccines Aged Out No long er eligible based on patient's age to complete this topic IPV Vaccines Aged Out No longer eligi ble based on patient's age to complete this topic MMR Vaccines Aged Out No longer eligi ble based on patient's age to complete this topic Meningococcal ACWY Vaccine Aged Out N o longer eligible based on patient's age to complete this topic Meningococcal B Vacine Aged Out No lo nger eligible based on patient's age to complete this topic RSV Immunization Patients Un helena 20 months Aged Out No longer eligible b ased on patient's age to complete this topic Varicella Vaccines Aged Out No longer eligible based on patient's age to complete this topic
--- NOTE | 2024-11-13 11:05 | P.OPN-COLO_ITS ---
Colonoscopy Operative Note Operative Note Date of Service: 11/13/24 Narrative: Operative Information Procedure Description: Colonoscopy Indication: screening Anesthesia: MAC COLONOSCOPY Instrument: Olympus variable stiffness pediatric scope 190L Colonoscopy Monitoring: Vital signs and clinical assessment, continuous EKG monitoring, Pulse oximetry, Carbon Dioxide monitoring and blood pressure monitoring were done throughout the procedure. Colon withdrawal time was 11 minutes. Procedure: The patient was placed in the left lateral decubitis position and pre-procedure medications were administered. After a digital rectal examination of the ano-rectum, the video colonoscope was inserted into the rectum and advanced through the colon to the cecum/TI. The colonoscope was slowly withdrawn in a retrograde panoramic fashion and the colon mucosa was carefully examined including a retroflexed view of the rectum. Findings and interventions are described below. Procedure Difficulty: moderate due to tight sigmoid from diverticulosis Findings: Terminal Ileum-normal Cecum:normal Ascending Colon: 4-5 mm sessile polyp removed with cold forceps Transverse Colon -normal Descending Colon: x 2 sessile polyps 10 mm removed with cold snare Sigmoid Colon:severe diverticulosis with luminal narrowing, x 1 sessile polyp 10 mm removed with cold snare and x 1 clip applied for hemostasis Rectum: Retroflexion with small internal hemorrhoids seen, grade I Anorectum - normal Intervention: cold snare, cold forceps Colon preparation: Orchard Bowel Preparation Scale Right colon; 2 Transverse colon: 2 Left colon; 2 (0 = Unprepared colon segment with mucosa not seen due to solid stool that cannot be cleared. 1 = Portion of mucosa of the colon segment seen, but other areas of the colon segment not well seen due to staining, residual stool and/or opaque liquid. 2 = Minor amount of residual staining, small fragments of stool and/or opaque liquid, but mucosa of colon segment seen well. 3 = Entire mucosa of colon segment seen well with no residual staining, small f ragments of stool or opaque liquid) Impression and Post Procedure Diagnosis: diverticulosis colon polyps internal hemorrhoids Plan: High fiber diet leaflet Avoid straining at stool, epsom salts and sitz bath, anusol supps or cream Repeat Colonoscopy in 3-4 years due to polyps or earlier if clinically indicated Above findings were reviewed with the patient and relevant handouts were provided if indicated.
[2024-11-13 11:12] VITALS: BP 118/49; PULSE 54; RESP 16; TEMP 36.3; O2SAT 97
[2024-11-13 11:34] VITALS: BP 123/54; PULSE 56; RESP 20; TEMP 36.6; O2SAT 96
--- NOTE | 2024-11-13 11:50 | HO.POSTANES ---
Post Anesthesia Evaluation Post Anesthesia Evaluation Date of Service: 11/13/24 Vital Signs: Vital Signs Temp Pulse Resp BP Pulse Ox O2 Del Method 11/13/24 11:34 98 F 56 20 123/54 L 96 Room Air 11/13/24 11:12 97.3 F 54 16 118/49 L 97 Room Air 11/13/24 09:39 97.6 F 58 20 141/69 H 98 Room Air Anesthesia: Monitored Mental Status: Awake Pain Control: Satisfactory Nausea/Vomiting: None Hydration: Adequate Anesthesia-Related Issues: No Anes. Related Issues
== END 2024-11-13 11:50 | disposition home or self-care (01) ==
PROVIDERS: PCP Internal Medicine; Visit Provider Internal Medicine Gastroenterology
PROC: 0DJD8ZZ Inspection of Lower Intestinal Tract, Via Natural or Artificial Opening Endoscopic (ICD-10-PCS; CPT 45378; principal; 2024-11-13 12:00)
DX: Z12.11 Encounter for screening for malignant neoplasm of colon (principal); D12.2 Benign neoplasm of ascending colon; D12.4 Benign neoplasm of descending colon; D12.5 Benign neoplasm of sigmoid colon; K57.30 Diverticulosis of large intestine without perforation or abscess without bleeding; K64.0 First degree hemorrhoids; Z87.19 Personal history of other diseases of the digestive system; I10 Essential (primary) hypertension; E78.00 Pure hypercholesterolemia, unspecified; H40.9 Unspecified glaucoma; Q51.0 Agenesis and aplasia of uterus; Z79.899 Other long term (current) drug therapy; Z98.890 Other specified postprocedural states
CPT/HCPCS: 45385; 45380; 88305; J2003; J2704

== ENCOUNTER → 2024-11-13 09:26 | Outpatient (BNV) | payer MEDICARE, SELFPAY | PROVIDERS: PCP Internal Medicine; Visit Provider Internal Medicine Gastroenterology | DX: Z12.11 Encounter for screening for malignant neoplasm of colon (principal); D12.2 Benign neoplasm of ascending colon; D12.4 Benign neoplasm of descending colon; D12.5 Benign neoplasm of sigmoid colon; K57.30 Diverticulosis of large intestine without perforation or abscess without bleeding; K64.0 First degree hemorrhoids | CPT/HCPCS: 45380; 45385 ==

== ENCOUNTER 2025-01-29 10:33 | Outpatient (AMB) | payer MEDICARE, SELFPAY ==
[2025-01-29 10:56] VITALS: BP 126/70; PULSE 53; TEMP 36.5; O2SAT 96; BMI 35.8
--- NOTE | 2025-01-29 10:56 | A.OFFPC_ITS ---
Vital Signs 01/29/25 10:56 Height 5 ft 3 in Weight 91.626 kg BMI 35.8 BP 126/70 Blood Pressure Location Lt brachial Position Sitting Pulse 53 Pulse Source Pulse Oximeter Temp 97.7 F Temp Source Axillary Pulse Oximetry (%) 96 Oxygen Delivery Method Room Air Intake Visit Reasons: Routine - see comments Assistant Media Planner Required: No Accompanied by: Self / Same As Patient Allergies No Known Allergies Allergy (Verified 01/29/25 10:56) Tobacco use date assessed: 01/29/25 Fall risk assessment: No Falls in past year Last assessed Fall Risk: 01/29/25 Dental Screening Dental Screen Date: 01/29/25 Did you have a dental visit in the last 12 months?: No Did you have a dental problem in the last 6 months where you did not have access to dental care?: No HPI HPI Comments History of Present Illness Details History of Present Illness The patient is a 79-year-old female presenting for a follow-up on chronic medical conditions and specific concerns regarding diverticulosis. The soni gement of essential hypertension includes multiple antihypertensives, with current stability noted at the clinic visit. She reports reducing her dose of HCTZ to 12.5mg daily. Follows with Nephrology who assisted in management of antihypertensives. Hyperlipidemia management is currently with atorvastatin, with recent discussions around dosage adjustments. Glaucoma is controlled with latanoprost, with no complications noted. Issues with diverticulosis have led to intermittent abdominal symptoms, with past episodes of pain leading to ER visits. The recent colonoscopy findings did not reveal malignancy but did indicate severe diverticulosis, necessitating surveillance and diet modification to prevent potential diverticulitis. She has been recommended for colonoscopy every for years. Mobility issues persist following knee surgery, with expressed concerns regarding TKA as recommended by Orthopedic surgery ([facility]). She is also considering PRP. The current strategy includes a focus on avoiding exacerbation of symptoms and understanding physical limitations. Review of Systems - Cardiovascular: Reports stable hyperte nsion. - Renal: Reports chronic kidney disease. - Endocrinology: Reports hyperlipidemia; medication adjustments ongoing. - Ophthalmologic: Reports glaucoma, michele es vision changes or eye pain. - Gastrointestinal: Reports episodes of diarrhea and constipation; concern over diverticulosis. - Musculoskeletal: Reports history of kn ee surgery; fears of mobility issues. - Neurological: Denies dizziness, vision changes, chest pain, or shortness of breath with current antihypertensive medication. Vital Signs Reviewed Health Maintenance - Patient on lifestyle adjustments for d iverticulosis; aware of dietary needs. - Current medications reviewed with emily ent and adjustments discussed, specifically noted reduction in hydrochlorothiazide. - Upcoming kidney function and cholester ol labs planned and discussed with patient. - Patient aware of need for follow-up co lonoscopy due to previous findings. Physical Exam Constitutional: Awake and alert, no apparent distress Heart: RRR, S1S2, no murmurs, no edema Lungs: CTA bilaterally, no wheezing Extremities: No calf tenderness Skin: Warm and dry Neuro: Alert and oriented x 3 Assessment and Plan 1. Essential Hypertension Blood pressure remains controlled with multi-drug regimen. Continue current antihypertensive medications and monitor renal function. Low sodium diet. BNP ordered. 2. Chronic Kidney Disease Ensure ongoing monitoring, with emphasis on renal labs, to guide further management. Continue following with Nephrology. BNP ordered 3. Hyperlipidemia Maintain current lipid-lowering therapy; re-assess following lipid panel results. Lipid panel ordered. Recommend low-fat diet. 4. Glaucoma Continue treatment with latanoprost. Routine ophthalmology reviews are recommended. 5. Severe diverticulosis Follow dietary recommendations and monitor for diverticulitis symptoms and educated on serious signs and symptoms to be aware of; proceed with follow-up colonoscopy as per adenoma findings every 3-4 years, followed by Gastroenterology. Reviewed most recent pathology report showing multiple tubular adenomas without evidence of high-grade dysplasia or adenocarcinoma Patient was informed and verbally consented to the use of an ambient scribe for clinic note documentation during this visit. [facility] Medical History (Updated 01/29/25 @ 11:36 by REINALDO Ponce) History of colitis History of diverticulitis of colon Glaucoma High cholesterol HTN (hypertension) S/p breast implant removal Vaginal fistula Tonsillectomy planned Aplasia of uterus Surgical History History of cataract surgery History of left knee replacement History of tonsillectomy and adenoidectomy Family History (Updated 01/29/25 @ 11:24 by Laury Angeles MA) Father Hypertension Mother Lung cancer Social History Household Members: None Housing: House Do you presently have visiting nurse or other home services: No Alcohol intake: never Patient Tobacco Use Status: Never used Tobacco e-Cigarette/Vaping Use: Never Used service: No Current occupational status: retired Cognitive needs: No Hearing needs: No Vision needs: Yes (reading glasses) Questionnaire PHQ-9 Over the last 2 weeks, how often have you been bothered by any of the following problems? 1. Little interest or pleasure in doing things: nearly every day 2. Feeling down, depressed, or hopeless: several days 3. Trouble falling or staying asleep, or sleeping too much: not at all 4. Feeling tired or having little energy: several days 5. Poor appetite or overeating: not at all 6. Feeling bad about yourself - or that you are a failure or have let yourself or your family down: not at all 7. Trouble concentrating on things, such as reading the newspaper or watching television: not at all 8. Moving or speaking so slowly that other people could have noticed. Or the opposite - being so fidgety or restless that you have been moving around a lot more than usual: not at all 9. Thoughts that you would be better off or of hurting yourself in some way: not at all Total score: 5 Source: Developed by Drs. Seven Asher, Paulette Galvan, Dima Robbins and colleagues, with an educational jose from [email or web address]. Thrive Questionnaire Date Thrive assessed: 01/29/25 I am a: Patient Within the past 12 months, did the food you bought not last and you didn't have the money to get more?: Never true Within the past 12 months, did you worry whether your food would run out before you got money to buy more?: Never true Do you have trouble paying for medicines?: No Do you have trouble getting transportation to medical appointments?: No Do you have trouble paying your heating and electricity bill?: No Do you have trouble taking care of your child, family member or friend?: No Do you have trouble with day-to-day activities such as bathing, preparing meals, shopping, managing finances, etc.?: No Are you currently unemployed and looking for a job?: No Are you interested in more education?: No THRIVE Score: 0 AUDIT C Alcohol Use Questionnaire (AUDIT-C) 1. How often do you have a drink containing alcohol?: Never 3. How often do you have six or more drinks on one occasion?: Never Total Score: 0 ANU-7 AMB Questionnaire ANU-7 Date ANU - 7 assessed: 01/29/25 Feeling nervous, anxious, or on edge: 0 = Not at all Not being able to stop or control worryin = Not at all Worrying too much about different things: 0 = Not at all Trouble relaxin = Not at all Being so restless that it is hard to sit still: 0 = Not at all Becoming easily annoyed or irritable: 0 = Not at all Feeling afraid as if something awful might happen: 0 = Not at all Total ANU-7 score (0-4 normal; 5-9 mild; 10-14 moderate; 15-21 severe): 0 Source: Developed by Drs. Seven Asher, Paulette Galvan, Dima Robbins and colleagues, with an educational jose from [email or web address]. Physical exam (Primary Care) Vital Signs: Last Vital Signs Temp 97.7 F 01/29/25 10:56 Pulse 53 01/29/25 10:56 BP 126/70 01/29/25 10:56 Pulse Ox 96 01/29/25 10:56 Oxygen Delivery Method Room Air 01/29/25 10:56 BMI result Body Mass Index 35.8 Tobacco/Smoking Status: Tobacco use Status Tobacco use date assessed 01/29/25 01/29/25 10:58 Patient Tobacco Use Status Never used Tobacco 01/29/25 10:58 e-Cigarette/Vaping Use Never Used 01/29/25 10:58 PHQ-9: PHQ-9 Score PHQ-9: Total score 5 01/29/25 12:31 Thrive Assessment: Date of Thrive Assessment Date Thrive assessed 01/29/25 01/29/25 10:58 Coding Level of Care Code Tele New Pt Level 4 (15872) Complex EM visit Add On G2211 Diagnoses Primary hypertension I10 Hypertension type: primary hypertension Stage 3a chronic kidney disease N18.31 Chronic kidney disease stage 3 subtype: stage 3a (GFR 45-59) High cholesterol E78.00 Assessment & Plan Assessment & Plan (1) HTN (hypertension): Code(s): I10 - Essential (primary) hypertension Category: Medical Qualifiers: Hypertension type: primary hypertension Qualified Code(s): I10 - Essential (primary) hypertension Plan: Reasonably controlled. Continue current therapies. BNP ordered (2) CKD (chronic kidney disease) stage 3, GFR 30-59 ml/min: Code(s): N18.30 - Chronic kidney disease, stage 3 unspecified Category: Medical Qualifiers: Chronic kidney disease stage 3 subtype: stage 3a (GFR 45-59) Qualified Code(s): N18.31 - Chronic kidney disease, stage 3a Plan: BNP ordered. Continue following with Nephrology as scheduled (3) High cholesterol: Code(s): E78.00 - Pure hypercholesterolemia, unspecified Category: Medical Plan: Lipid panel ordered. Continue with atorvastatin Plan Follow-up in 6 months, sooner if needed, with labs completed prior to visit Orders: Orders Hemoglobin A1c Today Z13.1 - Encounter for screening for diabetes mellitus Complete Blood Count Auto Diff Today I10 - Essential (primary) hypertension Basic Metabolic Panel Today I10 - Essential (primary) hypertension Lipid Panel Today E78.00 - Pure hypercholesterolemia, unspecified Lipid Panel 5 Months E78.00 - Pure hypercholesterolemia, unspecified, I10 - Essential (primary) hypertension, N18.31 - Chronic kidney disease, stage 3a Basic Metabolic Panel 5 Months E78.00 - Pure hypercholesterolemia, unspecified, I10 - Essential (primary) hypertension, N18.31 - Chronic kidney disease, stage 3a
--- OUTSIDE RECORDS SUMMARY | 2025-01-29 11:56 | XMS_ITS | Clinical Summary ---
Author Organization [facility] ity Address [address] [place] [address] Care Team Providers Care Dog Boarder Name Role Phone Unavailable Primary Care Provider [...] Vaccines (1 of 2) 1997 RSV Immunization Adult Patie nts (1 - 1-dose 75+ series) 2022 COVID-19 Vaccine ( - 2023-2 5 season) 2024 Influenza Vaccine (Season Ended) 2025 HIB Vaccines Aged Out No longer eligi [...] age to complete this topic Meningococcal B Vaccine Aged Out No l onger eligible based on patient's age to complete this topic RSV Immunization Patients Un helena 20 months Aged Out No longer eligible b ased on patient's age to complete this topic Varicella Vaccines Aged Out No longer eligible based on patient's age to complete this topic
== END 2025-01-29 13:34 | disposition home or self-care (01) ==
LOC: HO.HMCHD 10:33
PROVIDERS: PCP Internal Medicine; Visit Provider Physician Assistant
DX: I12.9 Hypertensive chronic kidney disease with stage 1 through stage 4 chronic kidney disease, or unspecified chronic kidney disease (principal); N18.31 Chronic kidney disease, stage 3a; E78.00 Pure hypercholesterolemia, unspecified

== ENCOUNTER → 2025-01-29 10:33 | Outpatient (BNVA) | payer MEDICARE, SELFPAY | PROVIDERS: PCP Internal Medicine; Visit Provider Physician Assistant ==

== ENCOUNTER 2025-01-29 12:02 | Outpatient (REF) | payer MEDICARE, SELFPAY ==
[2025-01-29 13:01] LABS: MANUAL DIFF FLAG NO
[2025-01-29 13:17] LABS: Basophils Percent Auto 0.4 % (0-2); Eosinophils Absolute Auto 0.2 X10*3/uL (0.0-0.4); Eosinophils Percent Auto 2.1 % (0-4); Hematocrit 44.1 % (37.0-47.0); Hemoglobin 14.1 g/dl (12.0-16.0); Imm Gran Abs Auto 0.05 X10*3/uL (0.00-0.03); Imm Gran Pct Auto 0.7 % (0.0-0.4); Lymphocytes Absolute Auto 1.6 X10*3/uL (1.2-4.9); Lymphocytes Percent Auto 21.3 % (20-40); Mean Corpuscular Hemoglobin 27.5 pg (27.0-33.0); Mean Platelet Volume 11.6 fL (9.4-12.3); Monocytes Absolute Auto 0.6 X10*3/uL (0.1-1.2); Neutrophils Absolute Auto 5.1 x10*3/uL (2.0-8.3); Neutrophils Percent Auto 67.5 % (45-73); Platelet Count 148 X10*3/uL (160-400); Red Blood Count 5.13 X10*6/uL (4.20-5.50); Red Cell Distribution Width 12.4 % (11.0-16.0); White Blood Count 7.6 X10*3/uL (4.8-10.8)
[2025-01-29 13:26] LABS: Estimated Average Glucose 120 mg/dL; Hemoglobin A1C 148.3756 umol/L; Hemoglobin A1c % 5.8 % (<6.0); Total Hemoglobin (HGBA1C) 3765.6816 umol/L
[2025-01-29 13:31] LABS: Anion Gap 14 (12-20); Blood Urea Nitrogen 22 mg/dL (9-16); Calcium 9.7 mg/dL (8.4-10.2); Carbon Dioxide 28 mmol/L (22-29); Chloride 99 mmol/L (96-108); Cholesterol 200 mg/dL (<200); Estimated Glomerular Filt Rate 46; Glucose Random 114 mg/dL (60-115); HDL Cholesterol 67 mg/dL (>40); LDL Cholesterol Calculated 103 mg/dL (<100); Potassium 3.6 mmol/L (3.3-5.1); Sodium 137 mmol/L (135-145); Triglycerides 150 mg/dL (<150)
--- OUTSIDE RECORDS SUMMARY | 2025-01-29 13:31 | XMS_ITS | Clinical Summary ---
Author Organization [facility] [address] ity Address [address] [place] [address] Care Team Providers Care Supervisor Beehive Kiln Name Role Phone Unavailable Primary Care Provider [...]
== END 2025-01-29 12:03 | disposition home or self-care (01) ==
LOC: HO.10HDL 12:02
PROVIDERS: Visit Provider Physician Assistant
DX: I12.9 Hypertensive chronic kidney disease with stage 1 through stage 4 chronic kidney disease, or unspecified chronic kidney disease (principal); N18.31 Chronic kidney disease, stage 3a; E78.00 Pure hypercholesterolemia, unspecified; Z13.1 Encounter for screening for diabetes mellitus
CPT/HCPCS: 36415; 80048; 80061; 83036; 85025; 96127; 99202

== ENCOUNTER 2025-04-07 07:56 | Outpatient (REF) | payer MEDICARE, SELFPAY ==
--- OUTSIDE RECORDS SUMMARY | 2025-04-07 07:59 | XMS_ITS | Clinical Summary ---
Author Organization [facility] ity Address [address] [place] [address] Care Team Providers Care Print Line Operator Name Role Phone Unavailable Primary Care Provider [...] 2023-2 5 season) 2024 Influenza Vaccine (#1) 2025 HIB Vaccines Aged Out No longer [...]
[2025-04-07 09:20] LABS: Hemoglobin A1C 149.2716 umol/L; Total Hemoglobin (HGBA1C) 3668.1908 umol/L
[2025-04-07 10:18] LABS: Anion Gap 13 (12-20); Blood Urea Nitrogen 24 mg/dL (9-16); Carbon Dioxide 26 mmol/L (22-29); Chloride 104 mmol/L (96-108); Estimated Glomerular Filt Rate 43; Potassium 3.9 mmol/L (3.3-5.1); Sodium 139 mmol/L (135-145)
[2025-04-07 14:42] LABS: Total Protein Urine Random < 7 mg/dL (<12)
== END 2025-04-07 07:57 | disposition home or self-care (01) ==
LOC: HO.LAB 07:56
PROVIDERS: PCP Internal Medicine; Visit Provider Internal Medicine Nephrology
DX: N18.31 Chronic kidney disease, stage 3a (principal); I10 Essential (primary) hypertension; Z13.1 Encounter for screening for diabetes mellitus
CPT/HCPCS: 36415; 80051; 82565; 82570; 83036; 84156; 84520

== ENCOUNTER 2025-04-09 09:30 | Outpatient (AMB) | payer MEDICARE, SELFPAY ==
[2025-04-09 09:49] VITALS: BP 120/70; PULSE 61; O2SAT 96; BMI 36.1
--- NOTE | 2025-04-09 09:49 | HO.NEPHOV ---
Vital Signs 04/09/25 09:49 Height 5 ft 3 in Weight 204 lb BMI 36.1 BP 120/70 Blood Pressure Location Lt brachial Position Sitting Pulse 61 Pulse Source Pulse Oximeter Pulse Oximetry (%) 96 Oxygen Delivery Method Room Air Intake Visit Reasons: Chronic Renal-Conf Automobile Mechanic Motor Required: No Accompanied by: Self / Same As Patient Allergies No Known Allergies Allergy (Verified 04/09/25 09:51) HPI Comments Details: Shelby was seen in follow up for her chronic kidney disease and hypertension. She denies any known history coronary artery disease, carotid stenosis, congestive heart failure, CVA, peripheral arterial disease or renal artery stenosis. She does not have any orthostatic symptoms, nausea, vomiting, diarrhea, chest pain, pedal edema, paroxysmal nocturnal dyspnea, orthopnea or urinary symptoms. She denies having any bone or back pain. She denies having epistaxis, hearing loss, photosensitivity, froth or foam in the urine, pedal edema, skin rashes, history of excessive nonsteroidal anti-inflammatory intake. She claims to be compliant with her medications. She denied any active new systemic complaints at the time of this office visit [facility] Medical History (Updated 01/31/25 @ 08:51 by REINALDO Ponce) Prediabetes History of colitis History of diverticulitis of colon Glaucoma High cholesterol HTN (hypertension) S/p breast implant removal Vaginal fistula Tonsillectomy planned Aplasia of uterus Surgical History History of cataract surgery History of left knee replacement History of tonsillectomy and adenoidectomy Family History Father Hypertension Mother Lung cancer Social History Household Members: None Housing: House Do you presently have visiting nurse or other home services: No Alcohol intake: never Patient Tobacco Use Status: Never used Tobacco e-Cigarette/Vaping Use: Never Used service: No Current occupational status: retired Cognitive needs: No Hearing needs: No Vision needs: Yes (reading glasses) Review of Systems Const All systems reviewed & are unremarkable except as noted in HPI and below Physical Exam Vital Signs: Last Vital Signs Pulse 61 04/09/25 09:49 BP 146/72 H 04/09/25 09:49 Pulse Ox 96 04/09/25 09:49 Oxygen Delivery Method Room Air 04/09/25 09:49 BMI result Body Mass Index 36.1 Const General: comfortable and no acute distress Orientation/consciousness: patient oriented x3 HEENT Head: Yes normocephalic Mouth: Normal oral and palatal mucosa present Eyes EOM: EOMs intact bilaterally Neck Neck: Yes supple Resp Auscultation: clear to auscultation bilaterally Cardio Jugular venous distension: no JVD Rate: regular rate GI Palpation (GI): Soft to palpation Auscultation: normal bowel sounds General: Yes no CVA tenderness Back/Spine/Pelvis Back: no CVA tenderness Skin General skin exam: no rashes or lesions noted Neuro General: patient oriented x3 and moves all extremities Extrem General: Yes no pedal edema Results Reviewed Nephrology Results: Hgb, (12.0-16.0) 14.1 g/dl 01/29/25 WBC, (4.8-10.8) 7.6 X10*3/uL 01/29/25 Plt Count, (160-400) 148 X10*3/uL L 01/29/25 Sodium, (135-145) 139 mmol/L 04/07/25 Potassium, (3.3-5.1) 3.9 mmol/L 04/07/25 Chloride, (96-108) 104 mmol/L 04/07/25 Carbon Dioxide, (22-29) 26 mmol/L 04/07/25 BUN, (9-16) 24 mg/dL H 04/07/25 Creatinine, (0.5-1.4) 1.22 mg/dL 04/07/25 Calcium, (8.4-10.2) 9.7 mg/dL 01/29/25 Urine Creatinine 167.95 mg/dL 04/07/25 Protein/Creatinin Ratio TNP 04/07/25 Renal US 02/21/24 Assessment & Plan Assessment & Plan (1) HTN (hypertension): Code(s): I10 - Essential (primary) hypertension Category: Medical Qualifiers: Hypertension type: primary hypertension Qualified Code(s): I10 - Essential (primary) hypertension (2) CKD (chronic kidney disease) stage 3, GFR 30-59 ml/min: Code(s): N18.30 - Chronic kidney disease, stage 3 unspecified Category: Medical Qualifiers: Chronic kidney disease stage 3 subtype: stage 3a (GFR 45-59) Qualified Code(s): N18.31 - Chronic kidney disease, stage 3a (3) High cholesterol: Code(s): E78.00 - Pure hypercholesterolemia, unspecified Category: Medical Plan Shelby has chronic kidney disease for some time. Her serum creatinine is stable. She is known to have hypertension and her blood pressure is at goal. She denies any vascular disease. There is no renovascular disease causing her hypertension as well as CKD. She is tolerating angiotensin receptor osmar. Her serum potassium is normal. Her urine output is good. She avoids nonsteroidal anti-inflammatories and maintain good hydration. I did not make any medication changes during this office visit. I shall consider SGLT2 i with time. Orders: Orders Creatinine 6 Months E78.00 - Pure hypercholesterolemia, unspecified, I10 - Essential (primary) hypertension, N18.31 - Chronic kidney disease, stage 3a Blood Urea Nitrogen 6 Months E78.00 - Pure hypercholesterolemia, unspecified, I10 - Essential (primary) hypertension, N18.31 - Chronic kidney disease, stage 3a Aspartate Amino Transferase 6 Months E78.00 - Pure hypercholesterolemia, unspecified, I10 - Essential (primary) hypertension, N18.31 - Chronic kidney disease, stage 3a Alanine Aminotransferase 6 Months E78.00 - Pure hypercholesterolemia, unspecified, I10 - Essential (primary) hypertension, N18.31 - Chronic kidney disease, stage 3a Lipid Panel 6 Months E78.00 - Pure hypercholesterolemia, unspecified, I10 - Essential (primary) hypertension, N18.31 - Chronic kidney disease, stage 3a Electrolytes 6 Months E78.00 - Pure hypercholesterolemia, unspecified, I10 - Essential (primary) hypertension, N18.31 - Chronic kidney disease, stage 3a Coding Level of Care Code Est Pt Level 4 (95832) Diagnoses Primary hypertension I10 Hypertension type: primary hypertension Stage 3a chronic kidney disease N18.31 Chronic kidney disease stage 3 subtype: stage 3a (GFR 45-59) High cholesterol E78.00
--- OUTSIDE RECORDS SUMMARY | 2025-04-09 09:59 | XMS_ITS | Clinical Summary ---
Author Organization [facility] ity Address [address] [place] [address] Care Team Providers Care Network Architect Name Role Phone Unavailable Primary Care Provider [...]
== END 2025-04-09 10:08 | disposition home or self-care (01) ==
LOC: HO.HKA 09:31
PROVIDERS: PCP Internal Medicine; Visit Provider Internal Medicine Nephrology
DX: I10 Essential (primary) hypertension (principal); N18.31 Chronic kidney disease, stage 3a; E78.00 Pure hypercholesterolemia, unspecified
CPT/HCPCS: 99214

== ENCOUNTER → 2025-04-09 09:30 | Outpatient (BNVA) | payer MEDICARE, SELFPAY | PROVIDERS: PCP Internal Medicine; Visit Provider Internal Medicine Nephrology | DX: I12.9 Hypertensive chronic kidney disease with stage 1 through stage 4 chronic kidney disease, or unspecified chronic kidney disease (principal); N18.31 Chronic kidney disease, stage 3a; E78.00 Pure hypercholesterolemia, unspecified | CPT/HCPCS: 99212 ==

== ENCOUNTER 2025-07-21 11:06 | Outpatient (AMB) | payer MEDICARE, SELFPAY ==
[2025-07-21 11:01] VITALS: BP 126/80; PULSE 56; TEMP 36.2; O2SAT 96; BMI 36.4
--- NOTE | 2025-07-21 11:01 | A.OFFPC_ITS ---
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: No Accompanied by: Self / Same As Patient Allergies No Known Allergies Allergy (Verified 07/21/25 11:01) Medication List - Last Reconciled 08/21/25 by REINALDO Redman amlodipine 10 mg PO DAILY 90 days atorvastatin 20 mg PO DAILY cholecalciferol (vitamin D3) (Vitamin D3) 50 mcg PO DAILY hydrochlorothiazide 12.5 mg PO DAILY latanoprost 0.005% 1 drp ophthalmic (eye) DAILY losartan 50 mg PO DAILY metoprolol tartrate 1 tab PO BID Tobacco use date assessed: 07/21/25 Fall risk assessment: 1 Fall in past year Last assessed Fall Risk: 07/21/25 Dental Screening Dental Screen Date: 07/21/25 Did you have a dental visit in the last 12 months?: No Did you have a dental problem in the last 6 months where you did not have access to dental care?: No HPI HPI Comments History of Present Illness Details The patient is a 80-year-old female with HTN, HLD, Low vitamin D, glaucoma and diverticulosis presenting to establish care and for a routine follow-up and management of chronic conditions. The patient has a history of hypertension managed with amlodipine, hydrochlorothiazide, losartan, and metoprolol, with current blood pressure readings within normal limits. He BP today was 126/80. She also has hyperlipidemia for which she takes atorvastatin. The patient has glaucoma, managed with eye drops, and she is scheduled to see her dish stacker next week for a routine check-up. She underwent cataract surgery, which has stabilized her vision. The patient has a history of diverticulosis, identified four years ago, with no significant complications reported. She underwent a colonoscopy recently, which revealed four polyps, necessitating follow-up every four years. The patient reports arthritis, particularly affecting her back and shoulder, which she manages with positional adjustments during sleep. She uses a cane for ambulation due to previous knee surgery and arthritis. Medical History: - Hypertension - Hyperlipidemia - Glaucoma - Diverticulosis - Arthritis Surgical History: - Cataract surgery - Knee surgery Medications: - Amlodipine for hypertension - Hydrochlorothiazide for hypertension - Losartan for hypertension - Metoprolol for hypertension - Atorvastatin for hyperlipidemia - Eye drops for glaucoma - Vitamin D supplement Patient was informed and verbally consented to the use of an ambient scribe for clinic note documentation during this visit. [facility] Medical History (Updated 08/21/25 @ 09:26 by REINALDO Redman) Aplasia of uterus Arthritis Diverticulosis Glaucoma High cholesterol History of colitis History of diverticulitis of colon HTN (hypertension) Prediabetes S/p breast implant removal Tonsillectomy planned Vaginal fistula Surgical History History of cataract surgery History of colonoscopy (~11/13/24) History of left knee replacement History of tonsillectomy and adenoidectomy Family History (Updated 07/21/25 @ 11:24 by Laury Angeles MA) Father Hypertension Mother Lung cancer Social History Household Members: None Housing: House Do you presently have visiting nurse or other home services: No Alcohol intake: never Patient Tobacco Use Status: Never used Tobacco e-Cigarette/Vaping Use: Never Used service: No Current occupational status: retired Cognitive needs: No Hearing needs: No Vision needs: Yes (reading glasses) Questionnaire PHQ-9 Over the last 2 weeks, how often have you been bothered by any of the following problems? 1. Little interest or pleasure in doing things: not at all 2. Feeling down, depressed, or hopeless: not at all 3. Trouble falling or staying asleep, or sleeping too much: not at all 4. Feeling tired or having little energy: not at all 5. Poor appetite or overeating: not at all 6. Feeling bad about yourself - or that you are a failure or have let yourself or your family down: not at all 7. Trouble concentrating on things, such as reading the newspaper or watching television: not at all 8. Moving or speaking so slowly that other people could have noticed. Or the opposite - being so fidgety or restless that you have been moving around a lot more than usual: not at all 9. Thoughts that you would be better off or of hurting yourself in some way: not at all Total score: 0 Depression Screening Interpretation: Negative Depression Screening Done: Yes Source: Developed by Drs. Seven Asher, Paulette Galvan, Dima Robbins and colleagues, with an educational jose from [employer]. Thrive Questionnaire Date Thrive assessed: 07/21/25 I am a: Patient Within the past 12 months, did the food you bought not last and you didn't have the money to get more?: Never true Within the past 12 months, did you worry whether your food would run out before you got money to buy more?: Never true Do you have trouble paying for medicines?: No Do you have trouble getting transportation to medical appointments?: No Do you have trouble paying your heating and electricity bill?: No Do you have trouble taking care of your child, family member or friend?: No Do you have trouble with day-to-day activities such as bathing, preparing meals, shopping, managing finances, etc.?: No Are you currently unemployed and looking for a job?: No Are you interested in more education?: No THRIVE Score: 0 AUDIT C Alcohol Use Questionnaire (AUDIT-C) 1. How often do you have a drink containing alcohol?: Never 3. How often do you have six or more drinks on one occasion?: Never Total Score: 0 ANU-7 AMB Questionnaire ANU-7 Date ANU - 7 assessed: 07/21/25 Feeling nervous, anxious, or on edge: 0 = Not at all Not being able to stop or control worryin = Not at all Worrying too much about different things: 0 = Not at all Trouble relaxin = Not at all Being so restless that it is hard to sit still: 0 = Not at all Becoming easily annoyed or irritable: 0 = Not at all Feeling afraid as if something awful might happen: 0 = Not at all Total ANU-7 score (0-4 normal; 5-9 mild; 10-14 moderate; 15-21 severe): 0 Source: Developed by Drs. Seven Asher, Dima Guillaume and colleagues, with an educational jose from [employer]. Review of Systems Narrative - Cardiovascular: Denies chest pain, dyspnea, or palpitations - Respiratory: Denies cough, wheezing, or hemoptysis - Gastrointestinal: Reports regular bowel movements, denies constipation or diarrhea - Musculoskeletal: Reports back pain, denies joint swelling or stiffness - Neurological: Denies numbness or tingling - Ophthalmologic: Denies vision changes, reports regular ophthalmology visits Physical exam (Primary Care) Vital Signs: Last Vital Signs Temp 97.2 F 07/21/25 11:01 Pulse 56 07/21/25 11:01 BP 126/80 07/21/25 11:01 Pulse Ox 96 07/21/25 11:01 Oxygen Delivery Method Room Air 07/21/25 11:01 BMI result Body Mass Index 36.4 GENERAL Well developed, obese, in no apparent distress HEENT Head-Normocephalic Eyes- PERRLA, EOMI, Conjuctiva clear, lids WNL Ears- Canals clear, TMs WNL Mouth/Throat-No lesions, no erythema, no exudate Neck- Supple, No lymphadenopathy, thyroid WNL RESPIRATORY Normal I:E, Clear to auscultation CARDIOVASCULAR Regular, rate and rhythm, No murmurs or rubs GASTROINTESTINAL Soft, nontender, normal bowel sounds, no masses MUSCULOSKELETAL Back-Normal ROM, Tender in Lumbar, Tender with motion, Straight leg raise negative, DTR 2+ symmetrical, Gait normal Joints- no pain swelling or deformity NEUROLOGICAL Gait normal PSYCHIATRIC Oriented to person, place and time Mood and affect WNL Appearance WNL Speech WNL Thought processes WNL Tobacco/Smoking Status: Tobacco use Status Tobacco use date assessed 07/21/25 07/21/25 11:02 Patient Tobacco Use Status Never used Tobacco 07/21/25 11:02 e-Cigarette/Vaping Use Never Used 07/21/25 11:02 PHQ-9: PHQ-9 Score PHQ-9: Total score 0 07/21/25 11:02 Depression Screening Interpretation: Negative Thrive Assessment: Date of Thrive Assessment Date Thrive assessed 07/21/25 07/21/25 11:02 Results Reviewed Results Reviewed: Labs in 12/2024 essentially normal Colonoscopy: Four polyps found, follow-up every four years recommended Coding Level of Care Code Established Pt Est Pt Level 4 (55343) Established Pt Complex EM visit Add On G2211 Patient Type Established Diagnoses Primary hypertension I10 Hypertension type: primary hypertension High cholesterol E78.00 Stage 3a chronic kidney disease N18.31 Chronic kidney disease stage 3 subtype: stage 3a (GFR 45-59) Diverticulosis K57.90 Glaucoma H40.9 Arthritis M19.90 Time Spent (min) 35 Comment Time spent on chart review, medication reconciliation, H&P, Patient education, Orders Assessment & Plan Assessment & Plan (1) HTN (hypertension): Comment: BP today was 126/80 Code(s): I10 - Essential (primary) hypertension Category: Medical Qualifiers: Hypertension type: primary hypertension Qualified Code(s): I10 - Essential (primary) hypertension Plan: The patient's hypertension is managed with a combination of amlodipine, hydrochlorothiazide, losartan, and metoprolol, with current blood pressure readings within normal limits. (2) High cholesterol: Code(s): E78.00 - Pure hypercholesterolemia, unspecified Category: Medical Plan: The patient is on atorvastatin for hyperlipidemia management, Lipid panel in 01/24 was OK (3) CKD (chronic kidney disease) stage 3, GFR 30-59 ml/min: Code(s): N18.30 - Chronic kidney disease, stage 3 unspecified Category: Medical Qualifiers: Chronic kidney disease stage 3 subtype: stage 3a (GFR 45-59) Qualified Code(s): N18.31 - Chronic kidney disease, stage 3a Plan: Patient is followed by Nephrology (4) Diverticulosis: Code(s): K57.90 - Diverticulosis of intestine, part unspecified, without perforation or abscess without bleeding Category: Medical Plan: The patient has a history of diverticulosis with no reported complications and is advised to undergo colonoscopy every four years due to the presence of polyps. (5) Glaucoma: Code(s): H40.9 - Unspecified glaucoma Category: Medical Plan: The patient uses eye drops for glaucoma management and is scheduled for a routine ophthalmology visit next week. (6) Arthritis: Code(s): M19.90 - Unspecified osteoarthritis, unspecified site Category: Medical Plan: The patient manages arthritis-related pain with positional adjustments during sleep and uses a cane for ambulation. Plan During the visit, we discussed the management of the patient's chronic conditions, including hypertension, hyperlipidemia, glaucoma, and diverticulosis. We reviewed her current medications and confirmed that her blood pressure is well-controlled. We also discussed the importance of regular follow- ups for her glaucoma and the need for colonoscopy every four years due to the presence of polyps. The patient was advised to continue her current medication regimen and to follow up with her dish stacker next week. Patient Instructions: - Continue taking all prescribed medications as directed. - Schedule and attend the ophthalmology appointment next week. - Plan for a follow-up colonoscopy in four years. - Use positional adjustments during sleep to manage arthritis pain. - Follow up in six months for routine evaluation and review of lab work.
== END 2025-07-21 11:42 | disposition home or self-care (01) ==
LOC: HO.HMCHD 11:07
PROVIDERS: PCP Internal Medicine; Visit Provider Physician Assistant Medical
DX: I10 Essential (primary) hypertension (principal); E78.00 Pure hypercholesterolemia, unspecified; N18.31 Chronic kidney disease, stage 3a; K57.90 Diverticulosis of intestine, part unspecified, without perforation or abscess without bleeding; H40.9 Unspecified glaucoma; M19.90 Unspecified osteoarthritis, unspecified site

== ENCOUNTER → 2025-07-21 11:06 | Outpatient (BNVA) | payer MEDICARE, SELFPAY | PROVIDERS: PCP Internal Medicine; Visit Provider Physician Assistant Medical | DX: I12.9 Hypertensive chronic kidney disease with stage 1 through stage 4 chronic kidney disease, or unspecified chronic kidney disease (principal); N18.31 Chronic kidney disease, stage 3a; E78.00 Pure hypercholesterolemia, unspecified; K57.90 Diverticulosis of intestine, part unspecified, without perforation or abscess without bleeding; H40.9 Unspecified glaucoma; M19.90 Unspecified osteoarthritis, unspecified site; Z79.899 Other long term (current) drug therapy; Z13.31 Encounter for screening for depression; Z13.39 Encounter for screening examination for other mental health and behavioral disorders | CPT/HCPCS: 96127; 99212 ==

== ENCOUNTER 2025-10-01 08:10 | Outpatient (REF) | payer MEDICARE, SELFPAY ==
--- OUTSIDE RECORDS SUMMARY | 2025-10-01 08:15 | XMS_ITS | Clinical Summary ---
Author Organization [facility] ity Address [address] [place] [address] Care Team Providers Care Buckle Sorter Name Role Phone Unavailable Primary Care Provider [...] nts (1 - 1-dose 75+ series) 2022 Depression Screening 10/02/2024 COVID-19 Vaccine ( - 2024-2 6 season) 2025 Influenza Vaccine (#1) 2025 HIB Vaccines Aged [...]
[2025-10-01 10:52] LABS: Alanine Aminotransferase 16 U/L (0-31); Anion Gap 12 (12-20); Aspartate Amino Transferase 21 U/L (5-31); Blood Urea Nitrogen 15 mg/dL (9-16); Carbon Dioxide 29 mmol/L (22-29); Chloride 106 mmol/L (96-108); Cholesterol 184 mg/dL (<200); Estimated Glomerular Filt Rate 43; HDL Cholesterol 63 mg/dL (>40); Potassium 4.0 mmol/L (3.3-5.1); Sodium 143 mmol/L (135-145); Triglycerides 192 mg/dL (<150)
== END 2025-10-01 08:11 | disposition home or self-care (01) ==
LOC: HO.10HDL 08:10
PROVIDERS: Visit Provider Internal Medicine Nephrology
DX: I12.9 Hypertensive chronic kidney disease with stage 1 through stage 4 chronic kidney disease, or unspecified chronic kidney disease (principal); N18.31 Chronic kidney disease, stage 3a; E78.00 Pure hypercholesterolemia, unspecified
CPT/HCPCS: 36415; 80051; 80061; 82565; 84450; 84460; 84520